=== PATIENT | male | born 1945 | race Caucasian/White ===

== ENCOUNTER → 2021-10-12 10:10 | Outpatient (CLI) | payer OTHER, MEDICAID, SELFPAY ==
--- NOTE | 2021-10-12 | DI.US.S_ITS ---
PROCEDURE: US FINE NEEDLE ASPIRATION INDICATIONS: Nontoxic single thyroid nodule TECHNIQUE: The indications, alternatives, benefits, risks, and complications of the procedure were explained to the patient. Written informed consent was obtained and placed in the chart. The area of interest was examined sonographically and a site was chosen for ultrasound guided percutaneous sampling. The skin was prepared and draped in the usual fashion, and anesthetized with 1% lidocaine infiltrated from the skin down to the lesion. Multiple passes were then performed, with contents emptied into an appropriate pathology specimen container. A bandage was applied to the area of access at completion of the study. COMPARISON: [facility], , US SOFT TISSUE HEAD OR NECK, 08/15/2021, 10:30. FINDINGS: Location(s) of lesion(s) sampled: Right inferior [place]: 25 gauge hypodermic needles. Number of passes: 7 Medications: 1% lidocaine for local anaesthesia. Complications: None. IMPRESSION: Successful ultrasound-guided right inferior thyroid fine needle aspiration, with cytology results pending. Dictated by: Davis Krueger M.D. on 10/12/2021 at 15:20 Approved by: Davis Krueger M.D. on 10/12/2021 at 15:22
--- NOTE | 2021-10-12 | PATH_ITS ---
Note [facility] Accession Number: [id number] TESTS RESULT FLAG UNITS REF RANGE LAB Clinician Provided Cytology Information No. of containers..04 Previously Prepared Cytology Slide 35 Unknown Storage/container code(s) Source: RIGHT THYROID NODULE DIAGNOSIS: RIGHT THYROID NODULE NEGATIVE FOR MALIGNANT CELLS. B[place]ES[place] CATEGORY II - BENIGN. SPECIMEN CONSISTS OF BENIGN FOLLICULAR CELLS, HEMOSIDERIN-LADEN MACROPHAGES, COLLOID, AND BLOOD. THIS PATTERN IS CONSISTENT WITH A COLLOID NODULE. Pathologist ICD10: 02 E04.1 Signed out by: 02 Rafy Dudley MD, PhD, Pathologist NPI- [id number] Performed by: Jhon Ward, [employer] ([facility]) Gross description: 01 30 CC, PINK, CLEAR /LCS 10/13/2021 0347 Local FLAG LEGEND: L-Low Normal,H-High Normal,LL-Alert Low,HH-Alert High <-Panic Low,>-Panic High,A-Abnormal,AA-Critical Abnormal Performed at: 01 =Z [facility] [address], [place] [address] Rafa Rhoades MD, 02 [facility] [address] [place] [id number] Silva Acosta MD, Performed at: 01 [facility] [address], [place], [place] [id number] MD Rafa Rhoades MD Phone: [phone]
== END ==
PROVIDERS: Family Provider Nurse Practitioner; PCP Internal Medicine; Referring Provider Otolaryngology; Visit Provider Otolaryngology
DX: E04.1 Nontoxic single thyroid nodule (principal)
CPT/HCPCS: 10005

== ENCOUNTER → 2023-01-11 12:53 | Outpatient (CLI) | payer OTHER, MEDICAID, SELFPAY ==
--- NOTE | 2023-01-11 | DI.US.S_ITS ---
PROCEDURE: US THYROID INDICATIONS: NONTOXIC SINGLE THYROID NODULE TECHNIQUE: Real-time scanning was performed of the thyroid gland, with image documentation. COMPARISON: [facility], US, US SOFT TISSUE HEAD OR NECK, 08/15/2021, 10:30. FINDINGS: Right: Thyroid lobe measures 4.7 x 1.9 x 1.4 cm, and is homogeneous in echotexture. Left: Thyroid lobe measures 3.5 x 1.6 x 1.2 cm, and is homogenous in echotexture. Isthmus: 2 mm thick. Nodule number: 1 Location: Right inferior thyroid Size: 1.2 x 1.1 x 0.8 cm. Composition: Solid Echogenicity: Hypoechoic Shape: wider than tall. Margins: Smooth Echogenic foci: None Total points: 4 ACR TI-RADS category: 4 Recommendations: Follow-up imaging at 1, 2, 3, and 5 years. IMPRESSION: Right thyroid nodule with follow-up recommended as above. Dictated by: Stepan Jacques M.D. on 01/11/2023 at 15:35 Transcribed by: CARRINGTON on 01/11/2023 at 15:37 Approved by: Stepan Jacques M.D. on 01/11/2023 at 16:45
== END ==
PROVIDERS: Family Provider Nurse Practitioner; PCP Internal Medicine; Referring Provider Internal Medicine; Visit Provider Internal Medicine
DX: E04.1 Nontoxic single thyroid nodule (principal)
CPT/HCPCS: 76536

== ENCOUNTER 2023-07-23 15:59 | Emergency (ER) | payer OTHER, MEDICAID, SELFPAY ==
--- NOTE | 2023-07-23 | DI.CT.S_ITS ---
PROCEDURE: CT ANGIO HEAD AND NECK INDICATIONS: dizziness TECHNIQUE: After the administration of intravenous contrast, 1 mm thick sections acquired from the aortic arch through the [place]. MIP reformats of the arterial vasculature were utilized. For radiation dose reduction, the following was used: automated exposure control, adjustment of mA and/or kV according to patient size. COMPARISON: [facility], MR, BRAIN (IAC) W&WO CONTRAST, 06/24/2015, 13:40. [facility], CT, CT HEAD/BRAIN WO CON, 07/23/2023, 16:35. FINDINGS: Cerebral CT Angiogram: Internal carotid arteries: Severe stenosis in the distal right cavernous ICA. Left distal ICA unremarkable. Anterior cerebral arteries: Unremarkable. No significant stenosis. No occlusion. No aneurysm. Middle cerebral arteries: Diminutive right MCA terminates in the distal M1 segment, consistent with prior infarct. Multiple branches noted in the anterior 3rd of the right MCA. Left MCA unremarkable Posterior cerebral arteries: Right [employer] is absent, occluded at its origin. Hypoplasia/aplasia of the left P1 PHOTO[employer]HY [employer]IN[employer] CURATOR noted. The P2 segment is supplied by a widely patent posterior communicating artery. Remainder of the distal vasculature unremarkable. Basilar artery: Diminutive but patent basilar artery terminates in the superior cerebellar arteries Vertebral arteries: Unremarkable as visualized. Dural venous sinuses: Unremarkable given phase of enhancement. Other: Encephalomalacia and gliosis noted in the posterior 2/3 of the right MCA and PH[employer]ATOR territory with associated volume loss. No intracranial hemorrhage Neck CT Angiogram: Internal carotid arteries: Unremarkable. No significant stenosis. No dissection or occlusion. Common carotid arteries: Unremarkable. No significant stenosis. No dissection or occlusion. External carotid arteries: Unremarkable. No occlusion. Vertebral arteries: Right vertebral artery dominance. 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 Aortic Arch and Mediastinum: Partially visualized aortic arch unremarkable without evidence of aneurysm. Origins of the great vessels unremarkable. IMPRESSION: 1. 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 Occluded right PHOTO[employer]HY [employer]IN[employer] CURATOR. 2. Old right MCA/PHOTOGRAPHY [employer]IN[employer] CURATOR infarcts. 3. Unremarkable CT angiogram of neck Approved by: Parish Rodriguez M.D. on 07/23/2023 at 16:30
[2023-07-23 16:09] VITALS: BP 144/74; PULSE 62; RESP 16; TEMP 36.3; O2SAT 100; BMI 27.1
--- NOTE | 2023-07-23 16:26 | DI.RAD.S_ITS ---
PROCEDURE: XR CHEST 1V INDICATIONS: Possible stroke TECHNIQUE: One view of the chest was acquired. COMPARISON: None. FINDINGS: Surgical changes and devices: None. Lungs and pleura: Lungs are clear. No pleural effusions or pneumothorax. Mediastinum: Mediastinal contours appear normal. Heart size is mildly prominent. Bones and chest wall: No suspicious bony lesions. Overlying soft tissues appear unremarkable. IMPRESSION: No acute pulmonary process. Dictated by: Shannan Philip M.D. on 07/23/2023 at 16:53 Approved by: Shannan Philip M.D. on 07/23/2023 at 16:53
--- NOTE | 2023-07-23 16:27 | DI.CT.S_ITS ---
PROCEDURE: CT HEAD/BRAIN WO CON INDICATIONS: dizziness TECHNIQUE: Noncontrast 4.5 mm thick angled axial sections acquired from the foramen magnum to the vertex, with coronal and sagittal reformats. For radiation dose reduction, the following was used: automated exposure control, adjustment of mA and/or kV according to patient size. COMPARISON: [facility], MR, BRAIN (IAC) W&WO CONTRAST, 06/24/2015, 13:40. CT, BRAIN W/O CONTRAST, 03/04/2015, 14:49. FINDINGS: Image quality: Excellent. CSF spaces: Basal cisterns are patent. No extra-axial fluid collections. The ventricles are symmetric in size and shape. Brain: No intracranial bleeds or masses. There is cerebral volume loss for age, with resultant ventricular and sulcal prominence. There are periventricular and deep white matter chronic small vessel ischemic changes. There is intracranial internal carotid artery atherosclerosis. Encephalomalacia within the right temporal parietal occipital lobe consistent with prior infarction. Old basal ganglia foci of lacunar ischemia. Skull and face: Calvarium and visualized facial bones appear intact, without suspicious lesions. Sinuses: Visualized sinuses and mastoids are clear. IMPRESSION: 1. No acute intracranial process. 2. Moderate atrophy and chronic microvascular ischemic changes. Dictated by: Shannan Philip M.D. on 07/23/2023 at 16:52 Approved by: Shannan Philip M.D. on 07/23/2023 at 16:52
[2023-07-23 16:37] LABS: INR 1.2 (0.9-1.3)
[2023-07-23 16:40] LABS: PTT Partial Thromboplastin Tim 33 SECONDS (26-36)
[2023-07-23 16:41] LABS: Alanine Aminotransferase 25 IU/L (<50); Albumin 4.2 g/dL (3.5-5.0); Albumin Globulin Ratio 1.6 (1.0-2.8); Alkaline Phosphatase 87 U/L (38-126); Aspartate Aminotransferase 23 IU/L (17-59); BUN Creatinine Ratio 17.8 (6-22); Bilirubin Total 1.7 mg/dL (0.2-1.3); Blood Urea Nitrogen 19 mg/dL (9-20); Carbon Dioxide 28 mmol/L (22-32); Chloride 107 mmol/L (98-107); Creatine Kinase 39 U/L (55-170); Estimated Glomerular Filt Rate > 60 mL/min (>60); Globulin 2.6 g/dL (1.7-4.1); Glucose 104 mg/dL (80-110); HEMOLYSIS < 15 (0-50); Magnesium 1.9 mg/dL (1.6-2.3); Potassium 4.4 mmol/L (3.4-5.1); Sodium 141 mmol/L (137-145); Total Protein 6.8 g/dL (6.3-8.2)
[2023-07-23 16:42] LABS: Add Manual Diff / Slide Review NO; Basophils Absolute Auto 100 /uL (0-100); Basophils Percent Auto 1.1 % (0-2); Eosinophils Absolute Auto 100 /uL (0-450); Eosinophils Percent Auto 1.2 % (2-4); Hematocrit 40.6 % (41-53); Hemoglobin 14.4 g/dL (13.5-17.5); Lymphocytes Absolute Auto 1500 /uL (1100-4500); Lymphocytes Percent Auto 21.7 % (25-40); Mean Corpuscular HGB Conc 35.5 % (30-36); Mean Corpuscular Hemoglobin 30.4 PG (26-34); Mean Corpuscular Volume 85.6 fL (80-100); Monocytes Absolute Auto 500 /uL (0-900); Monocytes Percent Auto 6.4 % (3-14); Neutrophils Absolute Auto 4900 /uL (1500-7000); Neutrophils Percent Auto 69.6 % (50-75); Platelet Count 191 X10^3/uL (150-400); Red Blood Cell Count 4.74 X10^6/uL (4.5-5.9); Red Cell Distribution Width 14.3 % (11.6-14.8); White Blood Cell Count 7.1 X10^3/uL (4.5-11.0)
[2023-07-23 16:52] LABS: Troponin I < 0.012 ng/mL (0.01-0.034)
[2023-07-23 18:05] VITALS: BP 136/68; PULSE 63; RESP 19; O2SAT 99
[2023-07-23 18:30] VITALS: PULSE 55; O2SAT 94
[2023-07-23 18:31] VITALS: BP 168/90; PULSE 61; O2SAT 95
--- NOTE | 2023-07-23 18:32 | ED_ITS ---
HPI - General Adult General Chief complaint: Dizziness Stated complaint: Light headed, dizzy. Stroke t-100 Time Seen by Provider: 07/23/23 17:49 Mode of arrival: Family Vehicle History of Present Illness HPI narrative: 77-year-old gentleman with a history of a large stroke in March of this year noted elevated blood pressure, dizziness and some lightheadedness around 230 this afternoon. He took some meclizine reports that is somewhat improved but comes in for additional evaluation. 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 After discharge he did go to stroke rehab and does have continued left-sided visual field deficits, paroxysmal atrial fibrillation, mild left- sided weakness worse when he is fatigued and occasional episodes of dizziness. He states that he had been doing well until he noted getting slightly clammy and feeling somewhat dizzy. He describes this as exactly like previous episodes. It was not associated with fever, cough, chills, orthopnea, dyspnea. He did not notice any change to his mild left-sided weakness and currently is completely asymptomatic. Related Data Allergies Allergy/AdvReac Type Severity Reaction Status Date / Time Penicillins Allergy Rash Verified 07/23/23 16:12 Review of Systems Constitutional Comments: Pertinent positive and negative findings as per HPI Patient History Social History Smoking Status: Never smoker Smoking Status: Never smoker Substance Use Type: does not use Exam Initial Vital Signs Initial Vital Signs: Vital Signs Temperature 97.3 F L 07/23/23 16:09 Pulse Rate 62 07/23/23 16:09 Respiratory Rate 16 07/23/23 16:09 Blood Pressure 144/74 H 07/23/23 16:09 Pulse Oximetry 100 07/23/23 16:09 Oxygen Delivery Method Room Air 07/23/23 16:09 General: Healthy appearing, in no acute distress. Able to give a complete and coherent history. Well-nourished well-developed HEENT: Moist mucous membranes, normal sclera with reactive pupils, left-sided peripheral visual field deficit Neck: No JVD, supple Respiratory: Lungs are clear to auscultation, no wheezing no rales no rhonchi. Full and symmetrical air movement Cardiac: Regular rate and rhythm no murmurs no bruits Abdomen: Soft, nontender, good bowel tones, no flank pain Skin: Warm and dry, no rashes Neurologic: Very minor weakness left upper and lower extremity that is still technically gets a 0 score on NIH scoring. Remainder of exam is benign Extremities: No trauma, well perfused Psych: Cooperative, appropriate insight and affect NIH Stroke Scale/Score (NIHSS) RESULT SUMMARY: 2 points NIH Stroke Scale INPUTS: 1A: Level of consciousness ?> 0 = Alert; keenly responsive 1B: Ask month and age ?> 0 = Both questions right 1C: 'Blink eyes' & 'squeeze hands' ?> 0 = Performs both tasks 2: Horizontal extraocular movements ?> 0 = Normal 3: Visual vance ?> 2 = Complete hemianopia 4: Facial palsy ?> 0 = Normal symmetry 5A: Left arm motor drift ?> 0 = No drift for 10 seconds 5B: Right arm motor drift ?> 0 = No drift for 10 seconds 6A: Left leg motor drift ?> 0 = No drift for 5 seconds 6B: Right leg motor drift ?> 0 = No drift for 5 seconds 7: Limb Ataxia ?> 0 = No ataxia 8: Sensation ?> 0 = Normal; no sensory loss 9: Language/aphasia ?> 0 = Normal; no aphasia 10: Dysarthria ?> 0 = Normal 11: Extinction/inattention ?> 0 = No abnormality Course Orders Ordered: ED Orders 07/23/23 16:25 Complete Blood Count AUTO DIFF Stat Comprehensive Metabolic Panel Stat Magnesium Stat PTT Partial Thromboplastin Cruz Stat Prothrombin Time INR Stat Troponin & CK Cardiac Panel Stat 07/23/23 16:26 XR chest 1V Stat EKG-12 Lead Stat 07/23/23 16:27 CT head/brain wo con Stat Ondansetron HCl (Ondansetron 4 Mg/2 Ml Inj) 4 mg IV NOW PRN PRN Reason: Nausea And Vomiting Ondansetron HCl (Ondansetron 4 Mg Odt) 4 mg SL NOW PRN PRN Reason: Nausea And Vomiting Vital Signs Vital signs: Vital Signs - 8 hr 07/23/23 16:09 07/23/23 18:05 Temperature 97.3 F L Pulse Rate 62 63 Respiratory Rate 16 19 Blood Pressure 144/74 H 136/68 Pulse Oximetry 100 99 Oxygen Delivery Method Room Air Room Air Medical Decision Making Lab Data 07/23/23 16:25 11/13/23 16:25 Labs: Lab Results 07/23/23 Range/Units 16:25 WBC 7.1 (4.5-11.0) X10^3/uL RBC 4.74 (4.5-5.9) X10^6/uL Hgb 14.4 (13.5-17.5) g/dL Hct 40.6 L (41-53) % MCV 85.6 (80-100) fL MCH 30.4 (26-34) PG MCHC 35.5 (30-36) % RDW 14.3 (11.6-14.8) % Plt Count 191 (150-400) X10^3/uL Neut % (Auto) 69.6 (50-75) % Lymph % (Auto) 21.7 L (25-40) % [place] % (Auto) 6.4 (3-14) % Eos % (Auto) 1.2 L (2-4) % Baso % (Auto) 1.1 (0-2) % Neut # (Auto) 4900 (9492-8519) /uL Lymph # (Auto) 1500 (4862-9345) /uL [place] # (Auto) 500 (0-900) /uL Eos # (Auto) 100 (0-450) /uL Baso # (Auto) 100 (0-100) /uL PT 14.0 H (10.1-12.7) SECONDS INR 1.2 (0.9-1.3) APTT 33 (26-36) SECONDS Sodium 141 (137-145) mmol/L Potassium 4.4 (3.4-5.1) mmol/L Chloride 107 (98-107) mmol/L Carbon Dioxide 28 (22-32) mmol/L BUN 19 (9-20) mg/dL Creatinine 1.07 (0.66-1.25) mg/dL Estimated GFR > 60 (>60) mL/min BUN/Creatinine Ratio 17.8 (6-22) Glucose 104 (80-110) mg/dL Calcium 10.0 (8.4-10.2) mg/dL Magnesium 1.9 (1.6-2.3) mg/dL Total Bilirubin 1.7 H (0.2-1.3) mg/dL AST 23 (17-59) IU/L ALT 25 (<50) IU/L Alkaline Phosphatase 87 (38-126) U/L Total Creatine Kinase 39 L (55-170) U/L Troponin I < 0.012 (0.01-0.034) ng/mL Total Protein 6.8 (6.3-8.2) g/dL Albumin 4.2 (3.5-5.0) g/dL Globulin 2.6 (1.7-4.1) g/dL Albumin/Globulin Ratio 1.6 (1.0-2.8) MDM Narrative Medical decision making narrative: CC: Dizziness Complicating co-morbidities: Data collected from: patient, significant other Social determinants of health that may influence the patients condition: Medical records reviewed: [facility] reviewed. Summarized in HPI. Cardiology notes from June 25 reviewed with recommendations to follow up with a Holter monitor to further evaluate his burden of atrial fibrillation. Differential considered: New stroke, hypoglycemia, hypotension, cardiac arrhythmia, chronic effect from prior stroke Exam documented above, pertinent findings include: Patient is quite pleasant. On detailed neurologic testing he does have left-sided peripheral field deficits and very mild left-sided upper and lower extremity weakness. His stroke rehab has progressed n nicely Lab Test results independently reviewed as above. Pertinent findings: CBC is unremarkable INR is 1.2 Chemistries show normal renal function, minimally elevated but it bilirubin at 1.7 (a chronic finding for him) no other significant abnormalities Independently reviewed EKG EKG today shows him to be in a sinus rhythm with PACs. Rate is at 63. No acute ischemic changes. Imaging studies independently reviewed: Head CT shows no acute intracranial processes with moderate atrophy and chronic microvascular ischemic changes Head and neck CTA multiple sequelae noted with large stroke in March are still appreciated including old right MCA and ENVELOPE ADDRESSER infarcts with a diminutive right am 1 MCA and absent distal branches in the posterior 2/3 territory. There is an occluded right ENVELOPE ADDRESSER. There are no new findings noted Chest x-ray is unremarkable. Discussion: 77-year-old gentleman with complex cardiovascular disease large stroke post TNK and thrombectomy with multiple vessel abnormalities still present. He is recently out of stroke rehab and still has some very mild left- sided weakness that is worse when he gets tired. He notes occasional dizziness but does not note any visual field changes despite the left-sided hemianopsia noted on exam. At this time his dizziness is completely resolved. He says that these episodes will happen intermittently and do not seem to be related to time of day, position or activity. The last from minutes to hours. If they last longer than minutes and he does take meclizine he finds that it is quite helpful. There is no indication of new stroke, new cardiac event, congestive heart failure, infection or alternate explanation that would require hospitalization, additional imaging or further workup. 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 Discharge Plan Departure Patient Disposition: Home Clinical Impression: Vertigo, Paroxysmal A-fib, H/O: stroke with residual effects Hypertension Qualifiers: Hypertension type: primary hypertension Qualified Code(s): I10 - Essential (primary) hypertension Instructions: DI for Vertigo Activity Restrictions/Additional Instructions: Thank you for coming in today You had a CT scan of your brain as well as all of the blood vessels going into and out of your brain. There were some findings related to the stroke that you had in March, however, there are no new findings. With a stroke that you had in March it makes sense that you actually do have a bit of vision that is missing and that you do have occasional episodes of vertigo. You did the exactly right thing by taking the meclizine with your episode of vertigo today. With your last visit with Dr. Carvajal, he would mentioned scheduled only for a Holter monitor to see how frequently your heart is in atrial fibrillation and how frequently it is in a regular rhythm. Following up with this test might be helpful in further evaluating your dizziness. At this time, there is no concern for new findings or reasons for hospitalization. I wish you well Referrals: Otoniel Ahn MD [Primary Care Provider] - Stand Alone Forms: Patient Portal/API
[2023-07-23 19:00] VITALS: PULSE 67; O2SAT 98
[2023-07-23 19:01] VITALS: BP 175/79; PULSE 69; O2SAT 98
== END 2023-07-23 19:18 | disposition home or self-care (01) ==
PROVIDERS: Emergency Medicine; Emergency Provider Emergency Medicine; Family Provider Nurse Practitioner; PCP Internal Medicine
DX: R42 Dizziness and giddiness (principal); I48.0 Paroxysmal atrial fibrillation; I10 Essential (primary) hypertension; Z79.01 Long term (current) use of anticoagulants; Z86.73 Personal history of transient ischemic attack (TIA), and cerebral infarction without residual deficits
CPT/HCPCS: 36415; 70450; 70496; 70498; 71045; 80053; 82550; 83735; 84484; 85025; 85610; 85730; 93005; 93010; 99284; Q9967

== ENCOUNTER 2024-12-09 14:05 | Observation (INO) | payer MEDICARE, MEDICAID, SELFPAY ==
[2024-12-09] VITALS (8 sets, daily range): BP systolic 119–149; BP diastolic 56–86; PULSE 41–51; RESP 12–18; TEMP 36.6–36.9; O2SAT 93–99; BMI 25.0
--- NOTE | 2024-12-09 14:28 | EKG_ITS ---
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
--- NOTE | 2024-12-09 14:28 | DI.RAD.S_ITS ---
PROCEDURE: XR CHEST 1V INDICATIONS: chest pain TECHNIQUE: One view of the chest was acquired. COMPARISON: [facility], CR, XR CHEST 1V, 07/23/2023, 16:31. FINDINGS: Surgical changes and devices: None. Lungs and pleura: There is mild pulmonary vascular congestion. No definite focal infiltrate. No pleural effusions or pneumothorax. Mediastinum: Mediastinal contours appear normal. Heart size is enlarged. Bones and chest wall: No suspicious bony lesions. Overlying soft tissues appear unremarkable. IMPRESSION: Cardiomegaly and mild congestion. No definite focal infiltrate. No significant pleural effusion or pneumothorax. Dictated by: Darrius Matias M.D. on 12/09/2024 at 14:50 Approved by: Darrius Matias M.D. on 12/09/2024 at 14:50
[2024-12-09 14:57] LABS: Add Manual Diff / Slide Review NO; Basophils Absolute Auto 100 /uL (0-100); Eosinophils Absolute Auto 100 /uL (0-450); Hematocrit 41.8 % (41-53); Hemoglobin 14.6 g/dL (13.5-17.5); Lymphocytes Absolute Auto 800 /uL (1100-4500); Lymphocytes Percent Auto 12.2 % (25-40); Mean Corpuscular HGB Conc 34.9 % (30-36); Mean Corpuscular Hemoglobin 30.8 PG (26-34); Mean Corpuscular Volume 88.4 fL (80-100); Monocytes Absolute Auto 300 /uL (0-900); Monocytes Percent Auto 3.8 % (3-14); Neutrophils Absolute Auto 5600 /uL (1500-7000); Platelet Count 158 X10^3/uL (150-400); Red Blood Cell Count 4.73 X10^6/uL (4.5-5.9); Red Cell Distribution Width 14.6 % (11.6-14.8); White Blood Cell Count 6.9 X10^3/uL (4.5-11.0)
[2024-12-09 15:04] LABS: INR 1.5 (0.9-1.3); Prothrombin Time 16.9 SECONDS (9.4-12.5)
[2024-12-09 15:07] LABS: PTT Partial Thromboplastin Tim 36 SECONDS (25.1-36.5)
[2024-12-09 15:09] LABS: Alanine Aminotransferase 21 IU/L (<50); Albumin 4.3 g/dL (3.5-5.0); Albumin Globulin Ratio 1.8 (1.0-2.8); Alkaline Phosphatase 109 U/L (38-126); Aspartate Aminotransferase 23 IU/L (17-59); BUN Creatinine Ratio 13.9 (6-22); Bilirubin Total 2.4 mg/dL (0.2-1.3); Blood Urea Nitrogen 15 mg/dL (9-20); Calcium 9.9 mg/dL (8.4-10.2); Carbon Dioxide 25 mmol/L (22-32); Chloride 107 mmol/L (98-107); Creatine Kinase 30 U/L (55-170); Estimated Glomerular Filt Rate > 60 mL/min (>60); Globulin 2.4 g/dL (1.7-4.1); Glucose 126 mg/dL (80-110); HEMOLYSIS < 15 (0-50); Lipase 29 U/L (23-300); Magnesium 1.8 mg/dL (1.6-2.3); Potassium 3.6 mmol/L (3.4-5.1); Sodium 142 mmol/L (137-145); Total Protein 6.7 g/dL (6.3-8.2)
--- NOTE | 2024-12-09 15:13 | ED_ITS ---
HPI - Syncope General Chief Complaint: Dizziness Stated Complaint: fatigue/dizzy Time Seen by Provider: 12/09/24 14:58 Source: patient, family and EMS Mode of arrival: EMS History of Present Illness HPI narrative: 79-year-old gentleman history of CVA atrial fibrillation, hld, vertigo was coming back from the foot doctor's office to the bus stop when he got dizzy and lightheaded and almost fell to the ground. He denies any trauma to the head or any loss of consciousness, chest pain, shortness of breath, leg pain or swelling. other than what is stated 14 point review of system is negative Related Data Allergies Allergy/AdvReac Type Severity Reaction Status Date / Time Penicillins Allergy Rash Verified 07/23/23 16:12 Review of Systems Review of Systems ROS Unobtainable: All systems reviewed & are unremarkable except as noted in HPI and below Patient History Social History Smoking Status: Former smoker Smoking Status: Former smoker Exam Narrative Exam Narrative: GENERAL: [79] year old patient appears stated age. Well-developed patient, in mild distress. HEAD: Atraumatic. Normocephalic. EYES: Pupils equal round and reactive. Extraocular motions intact. No scleral icterus. No injection or drainage. ENT: Nose without bleeding, purulent drainage. Throat without erythema, tonsillar hypertrophy or exudate. Airway patent. NECK: Trachea midline. Non tender CARDIOVASCULAR: Bradycardic, regular rate and rhythm without murmurs, gallops, or rubs. RESPIRATORY: Clear to auscultation. Breath sounds equal bilaterally. No wheezes, rales, or rhonchi. GASTROINTESTINAL: Abdomen soft, non-tender, nondistended. EXTREMITIES: No edema or joint tenderness. BACK: Nontender without deformity or crepitance. No flank tenderness. NEURO: AOx3. SKIN: No rash or erythema of visible areas Initial Vital Signs Initial Vital Signs: Vital Signs Temperature 98.4 F 12/09/24 14:10 Pulse Rate 48 L 12/09/24 14:10 Respiratory Rate 18 12/09/24 14:10 Blood Pressure 125/59 L 12/09/24 14:10 Pulse Oximetry 98 12/09/24 14:10 Oxygen Delivery Method Room Air 12/09/24 14:10 Course Orders Ordered: ED Orders 12/09/24 14:28 XR chest 1V Stat EKG-12 Lead Stat 12/09/24 14:45 Complete Blood Count AUTO DIFF Stat Comprehensive Metabolic Panel Stat Lipase Stat Magnesium Stat NT-proBNP (BNP-Adult 18+) Stat PTT Partial Thromboplastin [place] Stat Prothrombin Time INR Stat Troponin & CK Cardiac Panel Stat 12/09/24 15:13 CT head/brain wo con Stat Discontinued Medications Aspirin (Aspirin 81 Mg Chew Tab) 324 mg PO NOW ONE Stop: 12/09/24 14:29 Vital Signs Vital signs: Vital Signs - 8 hr 12/09/24 14:10 12/09/24 14:10 12/09/24 14:13 Temperature 98.4 F Pulse Rate 48 L 41 L Respiratory Rate 18 Blood Pressure 125/59 L 125/59 L Pulse Oximetry 98 96 Oxygen Delivery Method Room Air 12/09/24 14:13 12/09/24 14:30 12/09/24 14:30 Temperature Pulse Rate 44 L 41 L Respiratory Rate 14 Blood Pressure 128/63 Pulse Oximetry 95 97 Oxygen Delivery Method 12/09/24 15:00 12/09/24 15:01 12/09/24 15:01 Temperature Pulse Rate 42 L 42 L Respiratory Rate 14 15 Blood Pressure 119/56 L Pulse Oximetry 99 99 Oxygen Delivery Method All lab work EKG chest x-ray all reviewed. Patient remains heart rate of 46 here in the ER on the rehabilitation services counselor he is on metoprolol half a tablet of the metoprolol dose. Differential diagnosis includes symptomatic bradycardia, 1st vs 2nd vs 3rd degree av block, thyroid disease, electrolyte derangement. Case discussed with Dr. Harris who has graciously admitted the patient for observation. MDM - Syncope Lab Data 12/09/24 14:45 12/09/24 14:45 Labs: Lab Results 12/09/24 Range/Units 14:45 WBC 6.9 (4.5-11.0) X10^3/uL RBC 4.73 (4.5-5.9) X10^6/uL Hgb 14.6 (13.5-17.5) g/dL Hct 41.8 (41-53) % MCV 88.4 (80-100) fL MCH 30.8 (26-34) PG MCHC 34.9 (30-36) % RDW 14.6 (11.6-14.8) % Plt Count 158 (150-400) X10^3/uL Neut % (Auto) 82.0 H (50-75) % Lymph % (Auto) 12.2 L (25-40) % [place] % (Auto) 3.8 (3-14) % Eos % (Auto) 1.0 L (2-4) % Baso % (Auto) 1.0 (0-2) % Neut # (Auto) 5600 (2665-0828) /uL Lymph # (Auto) 800 L (0120-8001) /uL [place] # (Auto) 300 (0-900) /uL Eos # (Auto) 100 (0-450) /uL Baso # (Auto) 100 (0-100) /uL PT 16.9 H (9.4-12.5) SECONDS INR 1.5 H (0.9-1.3) APTT 36 (25.1-36.5) SECONDS Sodium 142 (137-145) mmol/L Potassium 3.6 (3.4-5.1) mmol/L Chloride 107 (98-107) mmol/L Carbon Dioxide 25 (22-32) mmol/L BUN 15 (9-20) mg/dL Creatinine 1.08 (0.66-1.25) mg/dL Estimated GFR > 60 (>60) mL/min BUN/Creatinine Ratio 13.9 (6-22) Glucose 126 H (80-110) mg/dL Calcium 9.9 (8.4-10.2) mg/dL Magnesium 1.8 (1.6-2.3) mg/dL Total Bilirubin 2.4 H (0.2-1.3) mg/dL AST 23 (17-59) IU/L ALT 21 (<50) IU/L Alkaline Phosphatase 109 (38-126) U/L Total Creatine Kinase 30 L (55-170) U/L Troponin I < 0.012 (0.01-0.034) ng/mL NT-Pro-B Natriuret Pep 390 (<450) pg/mL Total Protein 6.7 (6.3-8.2) g/dL Albumin 4.3 (3.5-5.0) g/dL Globulin 2.4 (1.7-4.1) g/dL Albumin/Globulin Ratio 1.8 (1.0-2.8) Lipase 29 (23-300) U/L ECG Data Attestation: I personally reviewed and interpreted this ECG as follows: Interpretation: SB HR [address]-t wave change OH 222 QRS 96 QT 520 Change from 07/23/23 Discharge Plan Departure Patient Disposition: Admitted as Observation Clinical Impression: Bradycardia Referrals: Otoniel Ahn MD [Primary Care Provider] - Admit Date/Time: 12/09/24 17:33 Admit Provider: Yared Harris
--- NOTE | 2024-12-09 15:13 | DI.CT.S_ITS ---
PROCEDURE: CT HEAD/BRAIN WO CON INDICATIONS: near syncope TECHNIQUE: Noncontrast 4.5 mm thick angled axial sections acquired from the foramen magnum to the vertex, with coronal and sagittal reformats. For radiation dose reduction, the following was used: automated exposure control, adjustment of mA and/or kV according to patient size. COMPARISON: [facility], CT, CT HEAD/BRAIN WO CON, 07/23/2023, 16:35. FINDINGS: Image quality: Diagnostic. CSF spaces: Basal cisterns are patent. No extra-axial fluid collections. The ventricles are symmetric in size and shape. Brain: No intracranial bleeds or masses. Moderate size old infarction in right MCA territory with significant encephalomalacia. This is unchanged from prior study. There is cerebral volume loss for age, with resultant ventricular and sulcal prominence. There are periventricular and deep white matter chronic small vessel ischemic changes. There is intracranial internal carotid artery atherosclerosis. Skull and face: Calvarium and visualized facial bones appear intact, without suspicious lesions. Sinuses: Visualized sinuses and mastoids are clear. IMPRESSION: No acute intracranial pathology. No significant changes from previous study. Dictated by: Darrius Matias M.D. on 12/09/2024 at 15:29 Approved by: Darrius Matias M.D. on 12/09/2024 at 15:30
[2024-12-09 15:21] LABS: NT-proBNP (BNP-Adult 18+) 390 pg/mL (<450); Troponin I < 0.012 ng/mL (0.01-0.034)
[2024-12-09 17:43] LABS: Thyroid Stimulating Hormone 3.03 uIU/mL (0.47-4.68)
--- NOTE | 2024-12-09 17:48 | PM.HP.1 ---
History of Present Illness History of Present Illness Date Patient Seen: 12/09/24 Chief complaint: fatigue/dizzy Narrative: The patient was a 79-year-old male with a history of CVA, atrial fibrillation, hyperlipidemia, and vertigo. He apparently went to a doctor's office appointment today and then radius was returning home when he became dizzy and lightheaded. The patient presented to the ED where there was a concern for bradycardia. He had a sinus rhythm with a rate of 42 and a first-degree AV block. The patient denies chest pain, or complete syncope. He was no history of syncopal episodes. He was a long history of vertigo but feels that this was different. He does note that he does get woozy from time to time. He was seen by Cardiology at [facility], Dr. Carvajal. He believes that his only heart problem is atrial fibrillation. This appears to be PAF. Presumably, he takes metoprolol for rate control. He was hard of hearing in his hearing aids. His girlfriend is leaving these with him at the hospital. [facility] Social History Smoking Status: Former smoker Meds Home Medications and Allergies Allergies Allergy/AdvReac Type Severity Reaction Status Date / Time Penicillins Allergy Rash Verified 07/23/23 16:12 Review of Systems Review of Systems Narrative: All else reviewed and otherwise unremarkable except as noted in the history and physical. Exam Vital Signs (past 8 hours): - 12/09/24 14:10 12/09/24 14:10 12/09/24 14:13 Temperature 98.4 F Pulse Rate 48 L 41 L Respiratory Rate 18 Blood Pressure 125/59 L 125/59 L Pulse Oximetry 98 96 Oxygen Delivery Method Room Air 12/09/24 14:13 12/09/24 14:30 12/09/24 14:30 Temperature Pulse Rate 44 L 41 L Respiratory Rate 14 Blood Pressure 128/63 Pulse Oximetry 95 97 Oxygen Delivery Method 12/09/24 15:00 12/09/24 15:01 12/09/24 15:01 Temperature Pulse Rate 42 L 42 L Respiratory Rate 14 15 Blood Pressure 119/56 L Pulse Oximetry 99 99 Oxygen Delivery Method Oxygen Delivery Method Room Air Narrative Exam Narrative: NAD, alert and oriented, fluent speech, calm. Normocephalic skull, EOMI, anicteric sclera, symmetric pupils. Oropharynx unremarkable, no droop. Neck supple, midline trachea, no adenopathy. Lungs clear, normal rate and effort. Heart regular, no murmur gallop or rub. Abdomen is soft, non distended and non tender. Extremities are free of edema. Skin is free of rash or lesions. Joints are not swollen or deformed. Judgment appears to be normal. Objective ECG Impression: Marked sinus bradycardia with 1st degree AV block Imaging Multiple studies:: Radiologist's impression: Head CT: No acute intracranial pathology. No significant changes from previous study. Chest x-ray: Cardiomegaly and mild congestion. No definite focal infiltrate. No significant pleural effusion or pneumothorax. Labs 12/09/24 14:45 12/09/24 14:45 Labs: Laboratory Results - last 24 hr 12/09/24 14:45 WBC 6.9 RBC 4.73 Hgb 14.6 Hct 41.8 MCV 88.4 MCH 30.8 MCHC 34.9 RDW 14.6 Plt Count 158 Neut % (Auto) 82.0 H Lymph % (Auto) 12.2 L [place] % (Auto) 3.8 Eos % (Auto) 1.0 L Baso % (Auto) 1.0 Neut # (Auto) 5600 Lymph # (Auto) 800 L [place] # (Auto) 300 Eos # (Auto) 100 Baso # (Auto) 100 PT 16.9 H INR 1.5 H APTT 36 Sodium 142 Potassium 3.6 Chloride 107 Carbon Dioxide 25 BUN 15 Creatinine 1.08 Estimated GFR > 60 BUN/Creatinine Ratio 13.9 Glucose 126 H Calcium 9.9 Magnesium 1.8 Total Bilirubin 2.4 H AST 23 ALT 21 Alkaline Phosphatase 109 Total Creatine Kinase 30 L Troponin I < 0.012 NT-Pro-B Natriuret Pep 390 Total Protein 6.7 Albumin 4.3 Globulin 2.4 Albumin/Globulin Ratio 1.8 Lipase 29 TSH 3.03 Assessment & Plan Assessment & Plan narrative: 1. Marked sinus bradycardia with first-degree heart block, present on admission and active. 2. Transient dizziness with possible presyncope, present on admission and active. 3. Remote CVA, present on admission stable. 4. Atrial fibrillation, not present on admission are active. 5. Hyperlipidemia, present on admission and stable. 6. History of vertigo, present on admission and not clearly active. Plan: Observational admit anticipate 1 midnight of care. Hold metoprolol and monitor heart rate. Telemetry. Continue other medications without change. Physical therapy assessment in the morning. IV fluids with saline 100 overnight in case he was volume depleted. The patient is full resuscitation, this is confirmed with him today. He lives in [place], it was accompanied by his girlfriend. Time-Based Coding :: 35 min spent with patient and on the chart (including review of chart, obtaining history, exam, reviewing outside data, placing orders, documenting exam and treatment plan, and counseling patient) on 12/09. Quality MIPS - Admit I confirm the patient?s Advance Care Plan is present, Code status is documented, Surrogate decision maker is in patient?s record [If Yes, STOP here]: Yes MIPS - Meds 'Current medications' to include all prescriptions, [id number] products, herbals, cannabis/cannabidiol products, and vitamin/mineral/dietary (nutritional) supplements. I have utilized all available resources to obtain, update, or review the patient?s current medications. [If Yes, STOP here]: Yes
--- NOTE | 2024-12-09 18:54 | CM.MNRNOTE ---
Patient arrived from ED at 1800 this evening. He is able to stand from gurney and take a couple of steps to lie down in bed. He denies dizziness but gait is slightly week. He is able to complete admission assessment with assistance from girlfriend at bedside. He denies pain, and is able to tolerate 100% of dinner meal. Placed on telemetry and reading is bradycardia with 1st degree AVB, and prolonged QT. HR in ED 40's-50's. Admission assessment completed with marcos MALDONADO MD at bedside evaluating patient. He is changed into hospital gown, skin assessment completed and oriented to room.
[2024-12-09] MEDS: SODIUM CHLORIDE 0.9% 1,000 ML 100 ML IV (21:58)
[2024-12-10] VITALS: BP 161/86; PULSE 45; RESP 16; TEMP 36.8; O2SAT 96
[2024-12-10 04:00] VITALS: BP 106/55; PULSE 88; RESP 20; TEMP 36.3; O2SAT 97
[2024-12-10] MEDS: SODIUM CHLORIDE 0.9% 1,000 ML 100 ML IV (06:36)
[2024-12-10 08:00] VITALS: BP 152/73; PULSE 52; RESP 16; TEMP 36.9; O2SAT 98
--- NOTE | 2024-12-10 10:11 | PM.DS.1 ---
History of Present Illness History of Present Illness Date Patient Seen: 12/10/24 Time Patient Seen: 10:12 Chief complaint: fatigue/dizzy Discharge Providers Provider Date of admission: 12/09/24 17:33 Discharge Date: 12/10/24 Primary care physician: Otoniel Ahn MD Consults: 12/10/24 10:08 Consult to Physical Therapy Evaluate & Treat Comment: Physician Instructions: Evaluate and Treat Discharge provider: Franko Muller DO Exam Vital Signs (past 8 hours): - 12/10/24 04:00 12/10/24 08:00 Temperature 97.4 F L 98.5 F Pulse Rate 88 52 L Respiratory Rate 20 16 Blood Pressure 106/55 L 152/73 H Pulse Oximetry 97 98 Oxygen Flow Rate 0 0 Oxygen Delivery Method Room Air Oxygen Flow Rate 0 Objective Labs 12/09/24 14:45 12/09/24 14:45 Labs: Laboratory Results - last 24 hr 12/09/24 14:45 WBC 6.9 RBC 4.73 Hgb 14.6 Hct 41.8 MCV 88.4 MCH 30.8 MCHC 34.9 RDW 14.6 Plt Count 158 Neut % (Auto) 82.0 H Lymph % (Auto) 12.2 L [place] % (Auto) 3.8 Eos % (Auto) 1.0 L Baso % (Auto) 1.0 Neut # (Auto) 5600 Lymph # (Auto) 800 L [place] # (Auto) 300 Eos # (Auto) 100 Baso # (Auto) 100 PT 16.9 H INR 1.5 H APTT 36 Sodium 142 Potassium 3.6 Chloride 107 Carbon Dioxide 25 BUN 15 Creatinine 1.08 Estimated GFR > 60 BUN/Creatinine Ratio 13.9 Glucose 126 H Calcium 9.9 Magnesium 1.8 Total Bilirubin 2.4 H AST 23 ALT 21 Alkaline Phosphatase 109 Total Creatine Kinase 30 L Troponin I < 0.012 NT-Pro-B Natriuret Pep 390 Total Protein 6.7 Albumin 4.3 Globulin 2.4 Albumin/Globulin Ratio 1.8 Lipase 29 TSH 3.03 PFSH Social History household members: significant other Smoking Status: Former smoker alcohol intake: current Discharge Plan Discharge Plan Patient Disposition: Home Discharge orders & Medications Prescriptions: No Action atorvastatin 80 mg tablet 80 mg PO DAILY hydralazine 25 mg tablet 25 mg PO 3XD amlodipine 2.5 mg tablet 2.5 mg PO DAILY potassium chloride 10 mEq tablet extended release 10 meq PO DAILY terbinafine HCl 250 mg tablet 250 mg PO DAILY tamsulosin 0.4 mg capsule 0.4 mg PO DAILY levetiracetam 250 mg tablet 500 mg PO BID meclizine 25 mg tablet 25 mg PO Q6H PRN (Reason: dizziness) sertraline 25 mg tablet 25 mg PO DAILY montelukast 10 mg tablet 10 mg PO DAILY metoprolol succinate 25 mg tablet extended release 24 hr 12.5 mg PO DAILY lisinopril 40 mg tablet 40 mg PO DAILY Eliquis 5 mg tablet 5 mg PO BID Follow up/Referrals: Otoniel Ahn MD [Primary Care Provider] - Visit Report/Discharge Packet Stand Alone Forms: Patient Portal/API, Stroke Signs & Symptoms Discharge Data Primary Care Provider: Otoniel Ahn Attending Provider: Yared Harris Admit Date/Time: 12/09/24 17:33
[2024-12-10] MEDS: levETIRAcetam 250 MG TABLET 500 MG PO ×2 (11:26→21:12)
[2024-12-10] MEDS: APIXABAN 5 MG TABLET PO ×2 (11:29→21:12)
--- NOTE | 2024-12-10 12:28 | CM.DANOTE ---
DCP Assessment Note: Pt is a 79yo male, resident of [place], is admitted for bradycardia. Pt's Primary Care Provider is Dr. Otoniel Ahn and insurance is [facility] Medicare and Medicaid [facility]. Reviewed chart and discussed with multidisciplinary team pt's medical status and initial discharge needs. Pt has discharge orders. DCP attempted to meet w/patient at bedside; introduced self and role. Pt kept eyes closed, seemed to be awake prior to entering but did not want to converse with this CORRECTION[employer] FACILITY NURSE. DCP left contact information on white board if any social needs arise, no dc needs identified. Plan: Anticipating dc home with caregiver/friend when medically cleared. CM team will follow closely for coordination of discharge plans. Alyssa Donnelly [facility] Discharge Planning/Care Management CM Discharge Assessment Start: 12/10/24 12:27 Freq: Status: Active Protocol: Document 12/10/24 12:27 MW (Rec: 12/10/24 12:28 MW [id number]) Discharge Planning Assessment Assigned Handicrafts Teacher ASTON Shah DPOA/Assigned Designee Name Elsy Hernandez, Friend Contact Information [phone] Advance Directives? No History Provided By Medical Record Has Patient been admitted in last 30 No days? Prior Living Arrangements RV Comment [place] Household Members significant other Barriers to Discharge No Discharge Plan Home Whiteboard Updated in Patient Room with Yes name and ext. # of Handicrafts Teacher Comment [phone] Review Status In Process Please Provide Date Initial DC 12/10/24 Assessment Was Performed Next Review Type Continued Stay Review
--- NOTE | 2024-12-10 13:50 | PT.IIE ---
Physical Therapy Inpatient Evaluation/Re-Eval M1 PT/OT-IP Prior Functional Status Start: 12/10/24 15:15 Freq: NEEDED Status: Active Protocol: Document 12/10/24 13:50 AB (Rec: 12/10/24 15:36 AB [id number]) Medical Review Prior Functional Status Medical History Reviewed Yes Communication very KNIK; able to respond to questions but needs repetitions Mobility and Gait pt stated that he was modified independent with all mobilities and ambulation using a quad cane indoors and a FWW for outdoor mobility Social History Household Members friend(s) Living Arrangements RV Number of Floors (Floors) One Floor Number of Stairs To Enter/Railing? 3 steps B rails to enter Home Environment Standard Height Toilet,Tub/ Shower,Built-In Shower Seat Home Equipment Front Wheel Walker,Quad Cane, Hand Held Shower,Grab Bars Near Toilet,Grab Bars In Shower Additional Social History Comment pt stated that he has his friends Kim and Shayna at home to assist him; mainly, Kim assist him per pt M2 PT-IP Current Condition Start: 12/10/24 15:15 Freq: NEEDED Status: Active Protocol: Document 12/10/24 13:50 AB (Rec: 12/10/24 15:36 AB [id number]) Physical Therapy Current Condition Current Condition Evaluation Date 12/10/24 Treatment Diagnosis bradycardia; difficulty in walking Onset Date 12/09/24 M3 PT-IP Subjective Start: 12/10/24 15:15 Freq: NEEDED Status: Active Protocol: Document 12/10/24 13:50 AB (Rec: 12/10/24 15:36 [id number]) Subjective Physical Therapy Visit Type Type Initial Evaluation Visit Start Time 13:50 Visit Stop Time 14:30 Number of [employer] L[employer] CORE FEEDER Visits 0 Physical Therapy Visit Comments Patient Comments agreeable to do PT M4 PT-IP Mobility and Gait Start: 12/10/24 15:15 Freq: NEEDED Status: Active Protocol: Document 12/10/24 13:50 AB (Rec: 12/10/24 15:36 [id number]) PT-Bed Mobility Assessment Supine to Sit Supine to Sit Standby Assistance,Head of Bed Elevated PT-Transfer Assessment Sit to and From Stand Sit to and from Stand Moderate Assistance,1 Person Assistance,Use of Upper Extremities Equipment Transfer Assistive Device Gait Belt,Front Wheeled Walker Orthotic/Prosthetic Devices or Brace: No Transfers Transfer Destination Chair Transfer Technique ambulated Transfer Ability Level of Assist Minimal Assistance,Moderate Assistance,1 Person Assistance ,Use of Upper Extremities Comments Mobility Comments pt in bed and agreed to do PT. obtained PLOF and home set up . pt is very KNIK and needing increase time to respond to questions and instructions. pt completed supine to sit SBA . able to sit on EOB SBA. BP : 144/74. IA: 47 O2 sat: 96% completed sit to stand mod A with lateral LOB to the L requiring mod A for safety. pt ambulated to the chair using fWW min to mod A and max cues ~ 15 ft. BP: 143/72. pt with unsteady antalgic gait with LLE tends to cross over midline. (+) LOB x 2 requiring mod A for recovery. pt with decrease safety awareness and unable to correct or rebalance without assitance. pt requested to use the toilet. sit to stand CGA and ambulated to the toilet using FWW min to mod A and max cues. pt has decrease safety awareness and needed one step instructions with all tasks. pt ambulated to the sink using FWW min to mod A and cues and was able to maintain standing min A while completing handwashing. pt ambulated back to chair using fWW min to mod A and max cues. pt with L sided inattention needing cues and assistance with L hand placement on FWW. Assessed ambulation using quad cane. sit to stand from chair CGA and ambulated using quad cane ~ 20 ft mod A and max cues with (+) LOB x 2. pt sat back on chair. sit to stand from chair CGA and pt completed stepping up/ down step stool using FWW min A and cues. assisted pt back on chair. positioned pt on chair. call light and table placed within reach. informed nurse and special education case manager regarding pt's mobility and assistance needed . requested OT eval orders. Gait Assessment Gait Gait Assistance Required: Minimum Assistance,Moderate Assistance Distance (Feet) 20 Able to Maintain Weight Bearing Status Yes During Gait Assistive Devices Assistive Device Gait Belt,Small Based Quad Cane,Front Wheeled Walker Orthotic/Prosthetic Devices or Brace: No Gait Deviations General Gait Pattern Antalgic,Ataxic,Decreased Stride Length,Decreased Feet Clearance,Flexed Trunk,Narrow Based Gait,Step-to Gait Factors Limiting Gait Function Factors Limiting Gait Function Decreased Activity Tolerance, Decreased Strength,Difficulty Following Directions,Limited Range of Motion,Poor Balance, Poor Safety Awareness PT-Balance Assessment Sitting Balance and Reactions Static Sitting Balance Ability Normal Dynamic Sitting Balance Ability Good Standing Balance and Reactions Static Standing Balance Ability Fair Dynamic Standing Balance Ability Poor Device Used FWW M5 PT-IP Objective Assessments Start: 12/10/24 15:15 Freq: NEEDED Status: Active Protocol: Document 12/10/24 13:50 AB (Rec: 12/10/24 15:36 AB [id number]) Orientation Orientation/Cognition Level of Alertness Alert Orientation Name,Situation Language Function Ability Hard of Hearing Safety Awareness Decreased Safety Awareness Memory Description Short Term Impaired,Senior Living Impaired Gross Range of Motion Lower Extremity ROM Assessment Within Functional Limits Strength Lower Extremity Strength Hip 4-/5 Knee 4-/5 Muscle Tone Muscle Tone WNL Yes M6 PT-IP Treatment Start: 12/10/24 15:15 Freq: NEEDED Status: Active Protocol: Document 12/10/24 13:50 AB (Rec: 12/10/24 15:36 AB [id number]) Physical Therapy Treatment Education Education Provided Safety M7 PT-IP Assessment and Plan Start: 12/10/24 15:15 Freq: NEEDED Status: Active Protocol: Document 12/10/24 13:50 AB (Rec: 12/10/24 15:36 AB [id number]) PT Summary Assessment and Plan Potential Rehabilitation Potential Fair Status of Condition at Evaluation Evolving Summary Impairments Pain,ROM,Strength,Balance, Coordination,Sensation,Tone, Cognition,Bed Mobility, Transfers,Gait,Activity Tolerance Assessment Summary pt is a 79 y/o M who is admitted for bradycardia. pt requiring min to mod A with mobility using FWW with (+) LOB needing mod A for recovery . pt with decrease safety awareness and inattention on L side. pt will require 24/7 assist at home and at this time will require SNF rehab. will continue to assess. informed special education case manager and requested OT eval order. Goals Bed Mobility Goal Independent Transfer Goal Standby Assistance,Front Wheeled Walker Gait Goal Standby Assistance,Front Wheel Walker Gait Distance 100 Other Goals improve transfers, ambulation using LRAD/quad cane SBA ~ 100 ft up/down 3 steps B rails SBA Days to Meet Goals 10 Frequency of Treatment Frequency Of Treatment Once a Day Treatment Plan Physical Therapy Treatment Plan Bed Mobility Training,Transfer Training,Gait Training, Therapeutic Exercise,Balance Retraining,Discharge Planning, Hot or Cold Pack,Neuromuscular Re-ed,Coordination Retraining ,Manual Therapy Precautions Other Precautions falls Recommendations To Nursing Amount of Assist Needed 1 Person Assist Discharge Recommendations PT Discharge Recommendations SNF Rehab Transportation Needs at Discharge Wheelchair/Cabulance - PT assist 1
--- NOTE | 2024-12-10 15:33 | P.PN_ITS ---
Subjective Subjective Interval history: 79 M admitted with dizziness and bradycardia, he reports improvement this morning and denied dizzyness, shortness of breath, or chest pain. He was discharged but when working with PT was unsteady, recommended for SNF, discharge cancelled and will look at SNF options. Exam Vital Signs (past 8 hours): - 12/10/24 08:00 Temperature 98.5 F Pulse Rate 52 L Respiratory Rate 16 Blood Pressure 152/73 H Pulse Oximetry 98 Oxygen Flow Rate 0 Oxygen Delivery Method Room Air Oxygen Flow Rate 0 Narrative Exam Narrative: NAD, alert and oriented, fluent speech, calm. Lungs clear, normal rate and effort. Heart regular, no murmur gallop or rub. Abdomen is soft, non distended and non tender. Extremities are free of edema. Objective Labs 12/09/24 14:45 12/09/24 14:45 Labs: Laboratory Results - last 24 hr 12/09/24 14:45 TSH 3.03 PFSH Social History household members: friend(s) Smoking Status: Former smoker alcohol intake: current Assessment & Plan Assessment & Plan narrative: 1. bradycardia with first-degree heart block, present on admission and active, improved. 2. Transient dizziness with possible presyncope, present on admission and active. 3. Remote CVA, present on admission stable. 4. Atrial fibrillation, not present on admission are active. 5. Hyperlipidemia, present on admission and stable. 6. History of vertigo, present on admission and not clearly active. Plan: - continue observation status. PT recommending SNF, OT consulted as well. finish production manager looking at possible placement options. - holding metoprolol and home antihypertensives, resumed home amlodipine today - check orthostatics qshift. - stop IV fluids. Dispo: possible SNF vs discharge home. Pending further PT and OT recommendations, and placement options. Time-Based Coding :: [TOTAL MINUTES] spent with patient and on the chart (including review of chart, obtaining history, exam, reviewing outside data, placing orders, documenting exam and treatment plan, and counseling patient) on [DATE].
[2024-12-10 16:00] VITALS: BP 155/81; PULSE 45; RESP 16; TEMP 36.7; O2SAT 97
--- NOTE | 2024-12-10 17:02 | CM.DPNOTE ---
DCP Continued: Reviewed EMR and team rounds for pt?s medical status. Pt had orders to dc home but PT evaluation indicated SNF Rehab recommendations. Per PT, pt had loss of balance 4x and was confused throughout evaluation. DCP notified hospitalist of above - hospitalist cancelled dc and gave verbal order for OT evaluation. FURNITURE MANAGER placed OT orders. OT evaluation pending for when OT returns next day. DCP entered room, present in the room are pt and his girlfriend, Elsy. Per girlfriend, pt has been increasingly weak/confused since his CVA in September 2024 (was admitted at another local hospital on [facility]). He did not go to SNF rehab after this or any PT/OT at home or in the community. DCP discussed recommendation from PT, pt and pt girlfriend agreeable with SNF plan. FURNITURE MANAGER provided Medicare Choice list, highlighting facilities that are contracted with pt's [employer] insurance - [facility] and [facility] are their preferences. It is reported that pt and girlfriend both do not drive and typically get rides from friends or utilize public transport. Pt girlfriend states they live in a 42' trailer and hallways are narrow, home health is not an option at their residence. Per GUILHERME RN, pt still in Observation status, will review again the following day. Plan: Anticipating SNF Rehab dc, pending referral/acceptance. CM Team will continue to follow for coordination of discharge plans. TERESE DavenportSW
[2024-12-10 20:00] VITALS: BP 156/80; PULSE 46; RESP 16; TEMP 36.2; O2SAT 98
[2024-12-10] MEDS: SODIUM CHLORIDE 0.9% FLUSH 10 ML IV (21:12)
[2024-12-10 21:35] VITALS: BP 168/80; BP 178/100; BP 178/94; PULSE 43; PULSE 45; PULSE 49
--- NOTE | 2024-12-10 23:28 | PC.NURSE ---
Patient was able to state his name, birthdate and place but otherwise not oriented. Breath sounds CTA with RA sat of 98%. Angry with RN regarding being awakened, having extra tele lead removed and socks removed to assess skin so when orthostatics checked his BP was more elevated at 178/100; did drop to 168/80 between lying and standing position. He is bradycardic with rate in 40's and telemetry reading was SB w/1st degree AVB; denied any dizziness. Denied nausea. BT present and abdomen is soft; had BM earlier today. He is voiding on toilet and denied any dysuria. Is able to turn himself in bed but is very slow in doing so. He was able to get himself to a standing position and seemed steady on feet; used walker. Gait not observed at time of assessment. He denied any pain, tingling or numbness. Is wearing bilateral calf SCD's. Fall risk assessment is high and bed alarm is activated.
[2024-12-11] VITALS: BP 181/100; PULSE 47; RESP 12; TEMP 36.6; O2SAT 96
[2024-12-11 04:00] VITALS: BP 169/86; PULSE 53; RESP 12; TEMP 36.9; O2SAT 96
[2024-12-11 08:24] VITALS: BP 167/68; PULSE 47; RESP 18; TEMP 36.2; O2SAT 95
[2024-12-11] MEDS: AMLODIPINE 5 MG TABLET 2.5 MG PO (08:30)
[2024-12-11] MEDS: ATORVASTATIN 20 MG TABLET 80 MG PO (08:30)
[2024-12-11] MEDS: SERTRALINE 50 MG TABLET 25 MG PO (08:31)
[2024-12-11] MEDS: SODIUM CHLORIDE 0.9% FLUSH 10 ML IV ×2 (08:32→20:36)
[2024-12-11] MEDS: APIXABAN 5 MG TABLET PO ×2 (08:32→20:36)
[2024-12-11] MEDS: levETIRAcetam 250 MG TABLET 500 MG PO ×2 (08:32→20:36)
--- NOTE | 2024-12-11 09:51 | PT.IPTN ---
Physical Therapy Treatment Note M2 PT-IP Current Condition Start: 12/10/24 15:15 Freq: NEEDED Status: Active Protocol: Document 12/10/24 13:50 AB (Rec: 12/10/24 15:36 AB [id number]) Physical Therapy Current Condition Current Condition Evaluation Date 12/10/24 Treatment Diagnosis bradycardia; difficulty in walking Onset Date 12/09/24 M3 PT-IP Subjective Start: 12/10/24 15:15 Freq: NEEDED Status: Active Protocol: Document 12/11/24 09:27 KS (Rec: 12/11/24 11:22 KS [id number]) Subjective Physical Therapy Visit Type Type Treatment Note Visit Start Time 09:27 Visit Stop Time 09:51 Number of COMMERCIAL LOAN PROCESSOR Visits 1 Physical Therapy Visit Comments Patient Comments agreeable to do PT M4 PT-IP Mobility and Gait Start: 12/10/24 15:15 Freq: NEEDED Status: Active Protocol: Document 12/11/24 09:27 KS (Rec: 12/11/24 11:22 KS [id number]) PT-Bed Mobility Assessment Supine to Sit Supine to Sit Standby Assistance,Head of Bed Elevated PT-Transfer Assessment Sit to and From Stand Sit to and from Stand Minimal Assistance,1 Person Assistance,Use of Upper Extremities Equipment Transfer Assistive Device Gait Belt,Front Wheeled Walker Orthotic/Prosthetic Devices or Brace: No Transfers Transfer Destination Chair Transfer Technique ambulated Transfer Ability Level of Assist Minimal Assistance,1 Person Assistance,Use of Upper Extremities Comments Mobility Comments Pt in bed upon arrival, agreeable to PT. Pt sup<>sit SBA and able to scoot EOB. Min A for sit<>stand w/ FWW. Pt able to perform [address] followed by ~40 ft ambulation w/ FWW. Pt LLE continually crosses midline during ambulation, increasng risk of falls but had no LOB today. Pt returned to chair and completed ankle pumps, quad sets, glute sets, and LAQs. Pt left in chair w/ all needs in reach. Gait Assessment Gait Gait Assistance Required: Contact Guard Assist,1 Person Assist Distance (Feet) 40 Able to Maintain Weight Bearing Status Yes During Gait Assistive Devices Assistive Device Gait Belt,Front Wheeled Walker Orthotic/Prosthetic Devices or Brace: No Gait Deviations General Gait Pattern Antalgic,Ataxic,Decreased Stride Length,Decreased Feet Clearance,Flexed Trunk,Narrow Based Gait,Step-to Gait Factors Limiting Gait Function Factors Limiting Gait Function Decreased Activity Tolerance, Decreased Strength,Difficulty Following Directions,Limited Range of Motion,Poor Balance, Poor Safety Awareness Comments Gait Comments see mobility section for more details. PT-Balance Assessment Sitting Balance and Reactions Static Sitting Balance Ability Normal Dynamic Sitting Balance Ability Good Standing Balance and Reactions Static Standing Balance Ability Fair Dynamic Standing Balance Ability Poor Device Used FWW M5 PT-IP Objective Assessments Start: 12/10/24 15:15 Freq: NEEDED Status: Active Protocol: Document 12/10/24 13:50 AB (Rec: 12/10/24 15:36 AB [id number]) Orientation Orientation/Cognition Level of Alertness Alert Orientation Name,Situation Language Function Ability Hard of Hearing Safety Awareness Decreased Safety Awareness Memory Description Short Term Impaired,Retirement Impaired Gross Range of Motion Lower Extremity ROM Assessment Within Functional Limits Strength Lower Extremity Strength Hip 4-/5 Knee 4-/5 Muscle Tone Muscle Tone WNL Yes M6 PT-IP Treatment Start: 12/10/24 15:15 Freq: NEEDED Status: Active Protocol: Document 12/11/24 09:27 KS (Rec: 12/11/24 11:22 KS [id number]) Physical Therapy Treatment Exercises Exercises Ankle Pumps,Gluteal Sets,Quad Sets,Seated Knee Flexion/ Extension Education Education Provided Safety M7 PT-IP Assessment and Plan Start: 12/10/24 15:15 Freq: NEEDED Status: Active Protocol: Document 12/11/24 09:27 KS (Rec: 12/11/24 11:22 KS [id number]) PT Summary Assessment and Plan Potential Rehabilitation Potential Fair Summary Impairments Pain,ROM,Strength,Balance, Coordination,Sensation,Tone, Cognition,Bed Mobility, Transfers,Gait,Activity Tolerance Progress Towards Goals Progressing Toward Goals Assessment Summary Pt showing some improvement w/ mobility today however remains a high fall risk due to LLE frequently crossing midline during ambulation and poor balance. Pt will benefit from SNF to improve functional mobility independence. Goals Bed Mobility Goal Independent Transfer Goal Standby Assistance,Front Wheeled Walker Gait Goal Standby Assistance,Front Wheel Walker Gait Distance 100 Other Goals improve transfers, ambulation using LRAD/quad cane SBA ~ 100 ft up/down 3 steps B rails SBA Days to Meet Goals 10 Frequency of Treatment Frequency Of Treatment Once a Day Treatment Plan Physical Therapy Treatment Plan Bed Mobility Training,Transfer Training,Gait Training, Therapeutic Exercise,Balance Retraining,Discharge Planning, Hot or Cold Pack,Neuromuscular Re-ed,Coordination Retraining ,Manual Therapy Precautions Other Precautions falls Recommendations To Nursing Amount of Assist Needed 1 Person Assist Discharge Recommendations PT Discharge Recommendations SNF Rehab Transportation Needs at Discharge Wheelchair/Cabulance - PT assist 1
--- NOTE | 2024-12-11 11:40 | OT.IP.EVAL ---
Occupational Therapy Inpatient Evaluation/Re-Eval M1 PT/OT-IP Prior Functional Status Start: 12/10/24 15:15 Freq: NEEDED Status: Active Protocol: Document 12/11/24 11:41 [facility] (Rec: 12/11/24 12:06 [facility] [id number]) Medical Review Prior Functional Status Medical History Reviewed Yes Communication very [place]AR[place]; able to respond to questions but needs repetitions Mobility and Gait pt stated that he was modified independent with all mobilities and ambulation using a quad cane indoors and a FWW for outdoor mobility Social History Household Members friend(s) Living Arrangements RV Number of Floors (Floors) One Floor Number of Stairs To Enter/Railing? 3 steps B rails to enter Home Environment Standard Height Toilet,Tub/ Shower,Built-In Shower Seat Home Equipment Front Wheel Walker,Quad Cane, Hand Held Shower,Grab Bars Near Toilet,Grab Bars In Shower Additional Social History Comment pt stated that he has his friends Kim and Shayna at home to assist him; mainly, Kim assist him per pt M2 OT-IP Current Condition Start: 12/11/24 11:39 Freq: Status: Active Protocol: Document 12/11/24 11:41 [facility] (Rec: 12/11/24 12:06 [facility] [id number]) Occupational Therapy Current Condition Current Condition Evaluation Date 12/11/24 Treatment Diagnosis Bradycardia, neuro symptoms Diagnosis Onset Date 12/09/24 M3 OT- IP Subjective and Pain Start: 12/11/24 11:39 Freq: Status: Active Protocol: Document 12/11/24 11:41 [facility] (Rec: 12/11/24 12:06 [facility] [id number]) OT- Subjective Occupational Therapy Visit Type Type Initial Evaluation Visit Start Time 10:55 Visit Stop Time 11:40 Occupational Therapy Visit Comments Patient Comments Pt agreed to get up. Able to notify pt's nurse of left visual deficits and unsteadiness of his balance. Patient/Caregiver Goals TO get better. OT Pain Assessment Pain When Pain Assessed At Rest Pain Present Pain Present Denied Pain M4 OT- IP ADL's Start: 12/11/24 11:39 Freq: Status: Active Protocol: Document 12/11/24 11:41 [facility] (Rec: 12/11/24 12:06 [facility] [id number]) OT [id number] Comments OT Self-Feeding Comments Not at meal time. Pt may need assist for orientation of the plate due to decreased vision, appears to have left hemianopsia. OT ADL-Grooming Comments OT Grooming Comments Pt just agreed to brush his hair at this time. OT ADL-Oral Care Comments Oral Care Comments Pt not wanting to perform. OT ADL-Dressing General Eval Lower Body Dressing Ability Standby Assistance Comments OT Dressing Comments Pt neglecting use of left hand at times and using more of his right hand to leanne/doff his socks. OT ADL-Toileting Comments OT Toileting Comments Not performed. OT ADL-Bathing Comments OT Bathing Comments Pt will benefit from assist. M5 OT- IP IADL's Start: 12/11/24 11:39 Freq: Status: Active Protocol: Document 12/11/24 11:41 [facility] (Rec: 12/11/24 12:06 [facility] [id number]) OT-Instrumental Activities of Daily Living Home Safety Awareness Home Safety Comments Pt decreased safety awareness for FWW and balance at this time as unsteady on his feet and not aware of visual deficits- appears to have left hemianopsia. Medication Management Medication Management Caregiver Administers Money Management Money Management Caregiver Provides Assistance Meal Preparation Meal Preparation Caregiver Provides Assist Medical Cost Consultant Medical Cost Consultant Caregiver Provides Assist M6 OT- IP Functional Cognition Start: 12/11/24 11:39 Freq: Status: Active Protocol: Document 12/11/24 11:41 [facility] (Rec: 12/11/24 12:06 [facility] [id number]) Cognitive Factors Limiting Selfcare Function Cognitive Ability Level of Alertness Alert Patient Orientation Name,Place Attention Span Ability Capable of Focused Attention, Capable of Sustained Attention Ability to Follow Commands Able to Follow One Step Commands Cognitive Comments Cognitive Assessment Comments Pt able to follow commands with increased time. Pt is also very [place] and at times appears to have difficulty to follow. NOted left neglect with left hand and left hemianopsia and unable to read from the menu accurately. OT- Vision and Hearing OT- Hearing Assessment OT- Hearing Assessment Hearing Impaired,Use of Hearing Aids OT- Vision Assessment Visual Acuity Glasses For Reading Visual Seals Impaired Visual Spacial Neglect Left Vision Assessment Comments Pt educated to turn and move his eyes/head to the left to see. IN addition to use his finger to find the left edge of the print/words so able to read all the information. M7 OT- IP Mobility and Balance Start: 12/11/24 11:39 Freq: Status: Active Protocol: Document 12/11/24 11:41 [facility] (Rec: 12/11/24 12:06 [facility] [id number]) OT-Transfer Assessment Sit to and From Stand Sit to and from Stand Contact Guard Assistance Transfers Transfer Ability Minimal Assistance Technique Transfer Destination Chair Transfer Technique Stand Step Pivot Devices Transfer Assistive Devices Gait Belt,Front Wheeled Walker Comments Mobility Comments CGA to stand from the recliner to FWW. Pt a bit unsteady on his feet and having loss of balance while standing at the sink and needing assist. OT- Balance Assessment Sitting Balance and Reactions Static Sitting Balance Ability Good Dynamic Sitting Balance Ability Good Standing Balance and Reactions Static Standing Balance Ability Fair Dynamic Standing Balance Ability Poor M8 OT- IP Objective Assessments Start: 12/11/24 11:39 Freq: Status: Active Protocol: Document 12/11/24 11:41 [facility] (Rec: 12/11/24 12:06 [facility] [id number]) OT Gross Range of Motion Upper Extremity Range of Motion Assessment Within Functional Limits OT Strength Upper Extremity Strength Assessment Left Impaired Comments Strength Comments RUE 4/5, LUE 4-/5 shoulder, elbow 4/5 and hand 4-/5. OT- Coordination Assessment Upper Extremity Finger to Nose Test Left UE Impaired M9 OT- IP Assessment and Plan Start: 12/11/24 11:39 Freq: Status: Active Protocol: Document 12/11/24 11:41 [facility] (Rec: 12/11/24 12:06 [facility] [id number]) OT Summary Assessment and Plan Potential Rehabilitation Potential Good Analytic Complexity at Evaluation Moderate Summary OT Impairments Strength,Balance,Coordination, Functional Cognition, Functional Mobility,Self- Feeding,Grooming,Dressing, Toileting,Bathing,Toilet Transfers,Shower Transfers, Activity Tolerance Progress Towards Goals Slow Progress due to Medical Issues,Slow Progress due to Activity Tolerance,Slow Progress due to Cognition Assessment Summary Pt MOD complexity and main barriers are left visual deficits, decreased balance, and strength. Pt to go to skilled rehab when medically stable. Goals Self-Feeding Goal Independent Grooming Goal Independent Dressing Goal Independent Toileting Goal Independent Bathing Goal Standby Assistance Toilet Transfer Goal Independent Shower Transfer Goal Standby Assistance OT-Other Goals Pt to be able to incorporate visual strategies 100% of the time for ADL and mobility needs. Days to Meet Goals 20 Frequency of Treatment Other frequency 5x/week Treatment Plan OT Treatment Plan ADL Training,Functional Cognition Training,Functional Mobility,Vision Retraining, Patient/Family Education, Discharge Planning Discharge Recommendations OT Discharge Recommendations SNF Rehab Transportation Needs at Discharge Private Vehicle,Wheelchair/ Cabulance
[2024-12-11 12:00] VITALS: BP 132/77; PULSE 57; RESP 18; TEMP 36.5; O2SAT 98
--- NOTE | 2024-12-11 13:12 | CM.DPC ---
DCP SNF Planning: Per MD, pt making progress and likely stable for d/c once SNF secured and insurance auth obtained. PT/OT, still recommending SNF. LUKE [facility] as they are both contracted with his [employer] [facility]. Gianluca Cruz confirms they can accept and submitted for [employer] auth today 12/11. [facility] can also accept if [place] plan falls through. PASRR completed but needs MD signature for exempted hospital discharge for depression/Zoloft. LUKE met bedside with pt, sig other not bedside, and updated on above and he confirms he is agreeable with d/c to [facility] if his insurance auth's SNF. Plan: LUKE to follow [facility] [employer] [facility] obtained, hopefully tomorrow Sunday. ASTON Nunez
--- NOTE | 2024-12-11 16:26 | P.PN_ITS ---
Subjective Subjective Interval history: 79 M admitted with dizziness and bradycardia, he reports improvement this morning and denied dizzyness, shortness of breath, or chest pain. He was discharged but when working with PT was unsteady, recommended for SNF, discharge cancelled and looking at SNF options. Exam Vital Signs (past 8 hours): - 12/11/24 12:00 Temperature 97.7 F Pulse Rate 57 L Respiratory Rate 18 Blood Pressure 132/77 Pulse Oximetry 98 Oxygen Flow Rate 0 Oxygen Delivery Method Room Air Oxygen Flow Rate 0 Narrative Exam Narrative: NAD, alert and oriented, fluent speech, calm. Lungs clear, normal rate and effort. Heart regular, no murmur gallop or rub. Abdomen is soft, non distended and non tender. Extremities are free of edema. Objective Labs 12/09/24 14:45 12/09/24 14:45 [facility] Social History household members: friend(s) Smoking Status: Former smoker alcohol intake: current Assessment & Plan Assessment & Plan narrative: 1. bradycardia with first-degree heart block, present on admission and active, improved. 2. Transient dizziness with possible presyncope, present on admission and active. 3. Remote CVA, present on admission stable. 4. Atrial fibrillation, not present on admission are active. 5. Hyperlipidemia, present on admission and stable. 6. History of vertigo, present on admission and not clearly active. Plan: - continue observation status. PT recommending SNF, OT consulted as well. manager access looking at possible placement options. - holding metoprolol and have resumed home amlodipine. No significant bradycardic events since admission. No heart blocks on telemetry either. - orthostatics negative today, can stop checking qshift. - stopped IV fluids on 12/10. Dispo: possible SNF vs discharge home. Pending further PT and OT recommendations, and placement options. Time-Based Coding :: [TOTAL MINUTES] spent with patient and on the chart (including review of chart, obtaining history, exam, reviewing outside data, placing orders, documenting exam and treatment plan, and counseling patient) on [DATE].
[2024-12-11 18:21] VITALS: BP 157/74
[2024-12-11 20:00] VITALS: BP 169/97; PULSE 49; RESP 12; TEMP 36.6; O2SAT 98
[2024-12-12] VITALS (8 sets, daily range): BP systolic 151–189; BP diastolic 80–103; PULSE 49–62; RESP 12–16; TEMP 35.9–36.7; O2SAT 96–98
[2024-12-12] MEDS: levETIRAcetam 250 MG TABLET 500 MG PO ×2 (09:20→20:26)
[2024-12-12] MEDS: SERTRALINE 50 MG TABLET 25 MG PO (09:20)
[2024-12-12] MEDS: APIXABAN 5 MG TABLET PO ×2 (09:21→20:26)
[2024-12-12] MEDS: SODIUM CHLORIDE 0.9% FLUSH 10 ML IV ×2 (09:21→20:26)
[2024-12-12] MEDS: ATORVASTATIN 20 MG TABLET 80 MG PO (09:21)
[2024-12-12] MEDS: AMLODIPINE 5 MG TABLET 2.5 MG PO (09:21)
--- NOTE | 2024-12-12 11:39 | CM.DPNOTE ---
Addendum entered by ASTON Solorio 12/12/24 16:57: SNF DCP Update: Per Jo at [facility], pt's insurance authorization has been obtained. [facility] requests wheelchair transport anytime in the afternoon, to be arranged by this [employer]INT [employer]ER and billed to their facility. RN-RN report #: [phone]. DCP coordinated transport via [facility] on 12/13 at 2:30pm. Relayed this information to [facility]. DCP notified pt RN, Coordiator, hospitalist of above. DCP cancelled referral with [facility]. GRETCHEN dover, needs MD signature. Plan: [facility] on 12/13 with transport via [facility] at 2:30pm. RUBY Davenport Original Note: DCP Continued: Reviewed EMR and team rounds for pt?s medical status. Per hospitalist, pt should be medically cleared to discharge to SNF, pending acceptance. DCP confirmed with pt's first choice, [facility] Admissions, that pt's insurance authorization is still under review. Pt has a referral out to second choice, [facility], will need to cancel that referral if authorization is approved at other SNF. Plan: Anticipating dc to SNF Rehab, pending insurance authorization. CM Team will continue to follow for coordination of discharge plans. RUBY Davenport
--- NOTE | 2024-12-12 12:20 | OT.IP.TRT ---
Occupational Therapy Treatment Note M2 OT-IP Current Condition Start: 12/11/24 11:39 Freq: Status: Active Protocol: Document 12/11/24 11:41 [facility] (Rec: 12/11/24 12:06 [facility] [id number]) Occupational Therapy Current Condition Current Condition Evaluation Date 12/11/24 Treatment Diagnosis Bradycardia, neuro symptoms Diagnosis Onset Date 12/09/24 M3 OT- IP Subjective and Pain Start: 12/11/24 11:39 Freq: Status: Active Protocol: Document 12/12/24 12:22 [facility] (Rec: 12/12/24 12:27 [facility] [id number]) OT- Subjective Occupational Therapy Visit Type Type Treatment Note Visit Start Time 12:10 Visit Stop Time 12:20 Occupational Therapy Visit Comments Patient Comments Pt eating his lunch. Patient/Caregiver Goals TO get better. OT Pain Assessment Pain When Pain Assessed At Rest Pain Present Pain Present Denied Pain M4 OT- IP ADL's Start: 12/11/24 11:39 Freq: Status: Active Protocol: Document 12/12/24 12:22 [facility] (Rec: 12/12/24 12:27 [facility] [id number]) OT UKO-[id number]-[id number] General Evaluation Self-Feeding Ability Standby Assistance,Maximum Assistance Comments OT Self-Feeding Comments Pt needing MAX AX to help incorporate his LUE to be able to hold the fork while cutting his food with his right hand. Pt still needing cues to move his eyes and head left so able to find items on his tray. M5 OT- IP IADL's Start: 12/11/24 11:39 Freq: Status: Active Protocol: Document 12/11/24 11:41 [facility] (Rec: 12/11/24 12:06 [facility] [id number]) OT-Instrumental Activities of Daily Living Home Safety Awareness Home Safety Comments Pt decreased safety awareness for FWW and balance at this time as unsteady on his feet and not aware of visual deficits- appears to have left hemianopsia. Medication Management Medication Management Caregiver Administers Money Management Money Management Caregiver Provides Assistance Meal Preparation Meal Preparation Caregiver Provides Assist Senior Software Qa Engineer Senior Software Qa Engineer Caregiver Provides Assist M6 OT- IP Functional Cognition Start: 12/11/24 11:39 Freq: Status: Active Protocol: Document 12/11/24 11:41 [facility] (Rec: 12/11/24 12:06 [facility] [id number]) Cognitive Factors Limiting Selfcare Function Cognitive Ability Level of Alertness Alert Patient Orientation Name,Place Attention Span Ability Capable of Focused Attention, Capable of Sustained Attention Ability to Follow Commands Able to Follow One Step Commands Cognitive Comments Cognitive Assessment Comments Pt able to follow commands with increased time. Pt is also very [place] and at times appears to have difficulty to follow. NOted left neglect with left hand and left hemianopsia and unable to read from the menu accurately. OT- Vision and Hearing OT- Hearing Assessment OT- Hearing Assessment Hearing Impaired,Use of Hearing Aids OT- Vision Assessment Visual Acuity Glasses For Reading Visual Seals Impaired Visual Spacial Neglect Left Vision Assessment Comments Pt educated to turn and move his eyes/head to the left to see. IN addition to use his finger to find the left edge of the print/words so able to read all the information. M7 OT- IP Mobility and Balance Start: 12/11/24 11:39 Freq: Status: Active Protocol: Document 12/11/24 11:41 [facility] (Rec: 12/11/24 12:06 [facility] [id number]) OT-Transfer Assessment Sit to and From Stand Sit to and from Stand Contact Guard Assistance Transfers Transfer Ability Minimal Assistance Technique Transfer Destination Chair Transfer Technique Stand Step Pivot Devices Transfer Assistive Devices Gait Belt,Front Wheeled Walker Comments Mobility Comments CGA to stand from the recliner to FWW. Pt a bit unsteady on his feet and havign loss of balance while standing at the sink and needing assist. OT- Balance Assessment Sitting Balance and Reactions Static Sitting Balance Ability Good Dynamic Sitting Balance Ability Good Standing Balance and Reactions Static Standing Balance Ability Fair Dynamic Standing Balance Ability Poor M8 OT- IP Objective Assessments Start: 12/11/24 11:39 Freq: Status: Active Protocol: Document 12/11/24 11:41 [facility] (Rec: 12/11/24 12:06 [facility] [id number]) OT Gross Range of Motion Upper Extremity Range of Motion Assessment Within Functional Limits OT Strength Upper Extremity Strength Assessment Left Impaired Comments Strength Comments RUE 4/5, LUE 4-/5 shoulder, elbow 4/5 and hand 4-/5. OT- Coordination Assessment Upper Extremity Finger to Nose Test Left UE Impaired M9 OT- IP Assessment and Plan Start: 12/11/24 11:39 Freq: Status: Active Protocol: Document 12/12/24 12:22 [facility] (Rec: 12/12/24 12:27 [facility] [id number]) OT Summary Assessment and Plan Potential Rehabilitation Potential Good Analytic Complexity at Evaluation Moderate Summary OT Impairments Strength,Balance,Coordination, Functional Cognition, Functional Mobility,Self- Feeding,Grooming,Dressing, Toileting,Bathing,Toilet Transfers,Shower Transfers, Activity Tolerance Progress Towards Goals Progressing Toward Goals Assessment Summary Pt able to recall that he needs to turn his eyes and head to find items on the food tray. Pt still needs cues to look left during meal time 25% of the time. Pt to go to skilled rehab when medically stable. Goals Self-Feeding Goal Independent Grooming Goal Independent Dressing Goal Independent Toileting Goal Independent Bathing Goal Standby Assistance Toilet Transfer Goal Independent Shower Transfer Goal Standby Assistance OT-Other Goals Pt to be able to incorporate visual strategies 100% of the time for ADL and mobility needs. Days to Meet Goals 19 Frequency of Treatment Other frequency 5x/week Treatment Plan OT Treatment Plan ADL Training,Functional Cognition Training,Functional Mobility,Vision Retraining, Patient/Family Education, Discharge Planning Discharge Recommendations OT Discharge Recommendations SNF Rehab Transportation Needs at Discharge Private Vehicle,Wheelchair/ Cabulance
--- NOTE | 2024-12-12 15:45 | PT.IPTN ---
Physical Therapy Treatment Note M2 PT-IP Current Condition Start: 12/10/24 15:15 Freq: NEEDED Status: Active Protocol: Document 12/10/24 13:50 [facility] (Rec: 12/10/24 15:36 [facility] [id number]) Physical Therapy Current Condition Current Condition Evaluation Date 12/10/24 Treatment Diagnosis bradycardia; difficulty in walking Onset Date 12/09/24 M3 PT-IP Subjective Start: 12/10/24 15:15 Freq: NEEDED Status: Active Protocol: Document 12/12/24 15:45 [facility] (Rec: 12/12/24 16:54 [facility] [id number]) Subjective Physical Therapy Visit Type Type Treatment Note Visit Start Time 15:45 Visit Stop Time 16:00 Number of FOREST RANGER TECHNICIAN Visits 0 Physical Therapy Visit Comments Patient Comments agreeable to do PT M4 PT-IP Mobility and Gait Start: 12/10/24 15:15 Freq: NEEDED Status: Active Protocol: Document 12/12/24 15:45 [facility] (Rec: 12/12/24 16:54 [facility] [id number]) PT-Bed Mobility Assessment Supine to Sit Supine to Sit Standby Assistance,Head of Bed Elevated,Bedrails Sit to Supine Sit to Supine Standby Assistance,Head of Bed Elevated,Bedrails PT-Transfer Assessment Sit to and From Stand Sit to and from Stand Contact Guard Assistance, Minimal Assistance,1 Person Assistance,Use of Upper Extremities Equipment Transfer Assistive Device Gait Belt,Front Wheeled Walker Orthotic/Prosthetic Devices or Brace: No Comments Mobility Comments pt in bed and agreed to do PT. BP: 160/78 CT: 54 pt completed supine to sit SBA . able to sit on EOB. sit to stand min A with (+) L sided LOB requiring min A to recover . pt can be impulsive. pt ambulated in room using FWW mod A . cued to increase ROMA and to move LLE to the side to prevent from crossing midline . pt initially unable to follow. provided pt with verbal, visual and tactile cues to be able to carryover but continues to require constant cues. able to ambulate min A after correcting increasing ROMA. pt continues to tend to run into things on L side. pt sat on EOB. educated on sit<>stand techniques to prevent from L sided LOB. pt completed sit<> stand x 2 requiring CGA and max cues. pt refused to sit on the chair stating that it is not tool comfortable and wants to go back to bed. sit to supine SBA. positioned pt on the bed. call light and table placed within reach. encouraged pt to get up on the chair for dinner and to ask for nurse's assistance. pt agreeding informed nurse. Gait Assessment Gait Gait Assistance Required: Minimum Assistance,Moderate Assistance,1 Person Assist Distance (Feet) 75 Able to Maintain Weight Bearing Status Yes During Gait Assistive Devices Assistive Device Gait Belt,Front Wheeled Walker Orthotic/Prosthetic Devices or Brace: No Gait Deviations General Gait Pattern Ataxic,Decreased Stride Length ,Decreased Feet Clearance, Narrow Based Gait Factors Limiting Gait Function Factors Limiting Gait Function Decreased Activity Tolerance, Decreased Strength,Difficulty Following Directions,Limited Range of Motion,Poor Balance, Poor Safety Awareness M5 PT-IP Objective Assessments Start: 12/10/24 15:15 Freq: NEEDED Status: Active Protocol: Document 12/10/24 13:50 [facility] (Rec: 12/10/24 15:36 [facility] [id number]) Orientation Orientation/Cognition Level of Alertness Alert Orientation Name,Situation Language Function Ability Hard of Hearing Safety Awareness Decreased Safety Awareness Memory Description Short Term Impaired,Direct Support Worker Impaired Gross Range of Motion Lower Extremity ROM Assessment Within Functional Limits Strength Lower Extremity Strength Hip 4-/5 Knee 4-/5 Muscle Tone Muscle Tone WNL Yes M6 PT-IP Treatment Start: 12/10/24 15:15 Freq: NEEDED Status: Active Protocol: Document 12/12/24 15:45 [facility] (Rec: 12/12/24 16:54 [facility] [id number]) Physical Therapy Treatment Education Education Provided Safety M7 PT-IP Assessment and Plan Start: 12/10/24 15:15 Freq: NEEDED Status: Active Protocol: Document 12/12/24 15:45 [facility] (Rec: 12/12/24 16:54 [facility] [id number]) PT Summary Assessment and Plan Potential Rehabilitation Potential Fair Summary Impairments Pain,ROM,Strength,Balance, Coordination,Sensation,Tone, Cognition,Bed Mobility, Transfers,Gait,Activity Tolerance Progress Towards Goals Slow Progress due to Activity Tolerance,Slow Progress - Other Assessment Summary pt improving slowly with mobility requiring min to mod A for ambulation using FWW and max cues for safety. pt continues to have (+) LOB and will require SNF rehab to improve overall strength and mobility. Goals Bed Mobility Goal Independent Transfer Goal Standby Assistance,Front Wheeled Walker Gait Goal Standby Assistance,Front Wheel Walker Gait Distance 100 Other Goals improve transfers, ambulation using LRAD/quad cane SBA ~ 100 ft up/down 3 steps B rails SBA Days to Meet Goals 10 Frequency of Treatment Frequency Of Treatment Once a Day Treatment Plan Physical Therapy Treatment Plan Bed Mobility Training,Transfer Training,Gait Training, Therapeutic Exercise,Balance Retraining,Discharge Planning, Hot or Cold Pack,Neuromuscular Re-ed,Coordination Retraining ,Manual Therapy Precautions Other Precautions falls Recommendations To Nursing Amount of Assist Needed 1 Person Assist Discharge Recommendations PT Discharge Recommendations SNF Rehab Transportation Needs at Discharge Wheelchair/Cabulance - PT assist 1
--- NOTE | 2024-12-12 18:32 | P.PN_ITS ---
Subjective Subjective Interval history: 79 M admitted with dizziness and bradycardia, he reports improvement this morning and denied dizzyness, shortness of breath, or chest pain. He was discharged but when working with PT was unsteady, recommended for SNF, discharge cancelled and looking at SNF options. Can go to SNF tomorrow at 2:30pm. Exam Vital Signs (past 8 hours): - 12/12/24 12:00 12/12/24 16:00 Temperature 96.7 F L 97.6 F Pulse Rate 54 L 53 L Respiratory Rate 14 15 Blood Pressure 178/86 H 171/86 H Pulse Oximetry 97 96 Oxygen Flow Rate 0 0 Oxygen Delivery Method Room Air Oxygen Flow Rate 0 Narrative Exam Narrative: NAD, alert and oriented, fluent speech, calm. Lungs clear, normal rate and effort. Heart regular, no murmur gallop or rub. Abdomen is soft, non distended and non tender. Extremities are free of edema. Objective Labs 12/09/24 14:45 12/09/24 14:45 PFSH Social History household members: friend(s) Smoking Status: Former smoker alcohol intake: current Assessment & Plan Assessment & Plan narrative: 1. bradycardia with first-degree heart block, present on admission and active, improved. 2. Transient dizziness with possible presyncope, present on admission and active. 3. Remote CVA, present on admission stable. 4. Atrial fibrillation, not present on admission are active. 5. Hyperlipidemia, present on admission and stable. 6. History of vertigo, present on admission and not clearly active. Plan: - continue observation status. PT recommending SNF, OT consulted as well. Current plan for discharge tomorrow to [facility] tomorrow at 2:30pm - holding metoprolol and have resumed home amlodipine. No significant bradycardic events since admission. No heart blocks on telemetry either. Will stop tele today. - orthostatics negative today, can stop checking qshift. - stopped IV fluids on 12/10. Dispo: Discharge to SNF tomorrow at 2:30, [facility]. Time-Based Coding :: [TOTAL MINUTES] spent with patient and on the chart (including review of chart, obtaining history, exam, reviewing outside data, placing orders, documenting exam and treatment plan, and counseling patient) on [DATE].
[2024-12-13 08:00] VITALS: BP 161/94; PULSE 64; RESP 16; TEMP 36.7; O2SAT 95
[2024-12-13] MEDS: ATORVASTATIN 20 MG TABLET 80 MG PO (08:32)
[2024-12-13] MEDS: levETIRAcetam 250 MG TABLET 500 MG PO (08:32)
[2024-12-13] MEDS: SERTRALINE 50 MG TABLET 25 MG PO (08:32)
[2024-12-13] MEDS: APIXABAN 5 MG TABLET PO (08:32)
[2024-12-13] MEDS: AMLODIPINE 5 MG TABLET 2.5 MG PO (08:32)
[2024-12-13] MEDS: SODIUM CHLORIDE 0.9% FLUSH 10 ML IV (08:33)
--- NOTE | 2024-12-13 11:00 | P.DS_ITS ---
History of Present Illness History of Present Illness Date Patient Seen: 12/13/24 Time Patient Seen: 08:48 Chief complaint: fatigue/dizzy Narrative: The patient was a 79-year-old male with a history of CVA, atrial fibrillation, hyperlipidemia, and vertigo. He apparently went to a doctor's office appointment today and then radius was returning home when he became dizzy and lightheaded. The patient presented to the ED where there was a concern for bradycardia. He had a sinus rhythm with a rate of 42 and a first-degree AV block. The patient denies chest pain, or complete syncope. He was no history of syncopal episodes. He was a long history of vertigo but feels that this was different. He does note that he does get woozy from time to time. He was seen by Cardiology at [facility], Dr. Carvajal. He believes that his only heart problem is atrial fibrillation. This appears to be PAF. Presumably, he takes metoprolol for rate control. He was hard of hearing in his hearing aids. His girlfriend is leaving these with him at the hospital. Discharge Providers Provider Date of admission: 12/09/24 17:33 Discharge Date: 12/13/24 Primary care physician: Otoniel Ahn MD Consults: 12/10/24 10:08 Consult to Physical Therapy Evaluate & Treat Comment: Physician Instructions: Evaluate and Treat 12/10/24 15:14 Consult to Occupational Therapy Evaluate & Treat Comment: Physician Instructions: Evaluate and treat Discharge provider: Joshua Chapman MD Summary Hospital Course Discharge Diagnosis: 1. Bradycardia with first-degree heart block, present on admission and active, improved off metoprolol. 2. Transient dizziness with possible presyncope, present on admission and active. 3. Remote CVA, present on admission stable. 4. Atrial fibrillation, not present on admission are active. 5. Hyperlipidemia, present on admission and stable. 6. History of vertigo. Hospital Course: The patient was admitted to observation status and monitored on telemetry, with metoprolol and lisinopril stopped. He had no significant bradycardic events since admission, and no heart block or orthostasis. Blood pressures brenda off amlodipine and lisinopril. Amlodipine was added back during hospitalization with blood pressure persistently elevated at discharge, and lisinopril resumed at 20 mg daily (40 mg prior to admission). Given overall weakness jail facility was recommended by Physical therapy. Case management worked with the patient to arrange jail facility admission. No other issues arose. Status at Discharge Cognitive/behavioral status at discharge: oriented Functional status at discharge: uses cane/walker Overall status at discharge: patient is back to baseline Time Spent with Patient Time spent: Greater than 30 minutes Exam Vital Signs (past 8 hours): - 12/13/24 08:00 Temperature 98.1 F Pulse Rate 64 Respiratory Rate 16 Blood Pressure 161/94 H Pulse Oximetry 95 Oxygen Flow Rate 0 Oxygen Delivery Method Room Air Oxygen Flow Rate 0 Narrative Exam Narrative: NAD, alert and oriented, fluent speech, calm. Lungs clear, normal rate and effort. Heart regular, no murmur gallop or rub. Abdomen is soft, non distended and non tender. Extremities are free of edema. Objective Imaging Chest xray 12/09/2024: Radiologist's impression: Cardiomegaly and mild congestion. No definite focal infiltrate. No significant pleural effusion or pneumothorax. Head CT 12/09/2024:: Radiologist's impression: No acute intracranial pathology. No significant changes from previous study. Labs 12/09/24 14:45 12/09/24 14:45 [facility] Social History household members: friend(s) Smoking Status: Former smoker alcohol intake: current Discharge Plan Discharge Plan Patient Disposition: SNF Transportation: Facility vehicle Provider Discharge Comment: You were admitted to the hospital with dizziness and a low HR, improved with holding one of your home medications. Home medications were adjusted. Please follow up with primary care provider and mushroom growing supervisor for ongoing medication adjustments moving forward after discharge home. I certify the postop hospital jail care is medically necessary on a continuing basis for any conditions for which he/ she received care during this hospitalization.: Yes The receiving facility has agreed to accept transfer and provide medical treatment.: Yes Discharge orders & Medications Prescriptions: New lisinopril 20 mg tablet 20 mg PO DAILY Qty: 30 0RF Continued atorvastatin 80 mg tablet 80 mg PO DAILY amlodipine 2.5 mg tablet 2.5 mg PO DAILY potassium chloride 10 mEq tablet extended release 10 meq PO DAILY terbinafine HCl 250 mg tablet 250 mg PO DAILY tamsulosin 0.4 mg capsule 0.4 mg PO DAILY levetiracetam 250 mg tablet 500 mg PO BID meclizine 25 mg tablet 25 mg PO Q6H PRN (Reason: dizziness) sertraline 25 mg tablet 25 mg PO DAILY montelukast 10 mg tablet 10 mg PO DAILY Eliquis 5 mg tablet 5 mg PO BID Discontinued hydralazine 25 mg tablet 25 mg PO 3XD metoprolol succinate 25 mg tablet extended release 24 hr 12.5 mg PO DAILY lisinopril 40 mg tablet 40 mg PO DAILY Follow up/Referrals: Otoniel Ahn MD [Primary Care Provider] - Diet/Activity/Treatments Diet: Diet as Tolerated and Regular Activity: As tolerated, no restrictions Visit Report/Discharge Packet Stand Alone Forms: Patient Portal/API, Stroke Signs & Symptoms Discharge Data Primary Care Provider: Otoniel Ahn Attending Provider: Yared Harris Admit Date/Time: 12/09/24 17:33 Quality MIPS - Admit I confirm the patient?s Advance Care Plan is present, Code status is documented, Surrogate decision maker is in patient?s record [If Yes, STOP here]: Yes [facility] - Meds 'Current medications' to include all prescriptions, [id number] products, herbals, cannabis/cannabidiol products, and vitamin/mineral/dietary (nutritional) supplements. I have utilized all available resources to obtain, update, or review the patient?s current medications. [If Yes, STOP here]: Yes [facility] - DC The patient has a history of heart transplant or Left Ventricular Assist Device (LVAD). If yes, STOP here.: No The patient has current or prior documentation of left ventricular ejection fraction (LVEF) less than or equal to 40%, or moderate or severely depressed left ventricular systolic function.: No A. The patient was prescribed or already taking an Angiotensin-Converting Enzyme (DEBI) Inhibitor, or Angiotensin Receptor Reynaldo (ARB).: Yes B. The patient was prescribed or already taking a beta-reynaldo. [If Yes to Both A & B, STOP here]: No Patient not prescribed/taking DEBI or ARB, no reason given.: No Patient not prescribed/taking beta-reynaldo, no reason given.: No [facility] Charge Codes Discharge inpatient/observation: 70201
--- NOTE | 2024-12-13 11:20 | CM.DPC ---
DCP Discharge SNF Per MD, pt medically stable to d/c to SNF today and discharge orders placed and packet completed. [facility] secure emailed [facility] pt's signed PASRR, signed med list, no scripts, MD orders and d/c summary to review and called admissions phone and left with update on d/c today as planned. SW called [facility] and confirmed they have pt scheduled for pickup today around 1430 to [facility] with facility paying for transport. RN, CUTTER HEAD SHARPENER, and breed to wean production technician updated. Plan: patient to d/c to [facility] today around 1430 via [facility] before return home with Sig Other. Juju Jackson MSW
[2024-12-13] MEDS: ONDANSETRON 4 MG/2 ML INJ IV (13:16)
== END 2024-12-13 15:43 ==
LOC: ED 14:58 → AC 17:34
PROVIDERS: Admitting Provider Hospitalist; Emergency Provider Family Medicine; Family Provider Nurse Practitioner; PCP Internal Medicine; Referring Provider Family Medicine; Visit Provider Hospitalist
DX: I44.0 Atrioventricular block, first degree (principal); I48.91 Unspecified atrial fibrillation; E78.5 Hyperlipidemia, unspecified; Z86.73 Personal history of transient ischemic attack (TIA), and cerebral infarction without residual deficits; Z87.891 Personal history of nicotine dependence
CPT/HCPCS: 36415; 70450; 71045; 80053; 82550; 83690; 83735; 83880; 84443; 84484; 85025; 85610; 85730; 93005; 96361; 96374; 97110; 97116; 97162; 97166; 97530; 97535; 99284; G0378; J2405

== ENCOUNTER → 2025-04-20 13:59 | Outpatient (CLI) | payer OTHER, MEDICAID, SELFPAY ==
[2024-12-09 18:11] VITALS: BMI 25.0
--- NOTE | 2025-04-20 14:01 | DI.ECHO.S_ITS ---
[facility] +---------+ Hospital : : [address] : : [place] : : [id number] : : Phone: [phone] Echocardiogram Report + + :Name: LEIGH GRISSOM Study Date: 04/20/2025 Height: 72 in : :Hospital ReadingLocation: Weight: 185 lb : : Gender: Male BSA: 2.1 m2 : :: 1945 Age: 79 yrs BP: 145/87 mmHg: :Reason For Study: BRADYCARDIA : :Ordering Physician: NAHUM, : :DIANA Performed By: rFedis Olivares : :Referring: DIANA SIDHU : + + Interpretation Summary The left ventricle is normal in size. There is mild-moderate concentric left ventricular hypertrophy. Left ventricular ejection fraction is estimated to be 65 +/- 5%. Previous LVEF 60 to 65%. The left ventricular ejection fraction is normal. The right ventricle is normal in size and function. No significant valvular pathology seen. The IVC is of normal diameter and collapses greater than 50% with a sniff. This suggests a low right atrial pressure of 3 mm Hg. Procedure: A two-dimensional transthoracic echocardiogram with color flow and Doppler was performed. The study quality was technically good. Comparison is made with the echocardiogram of 10/30/2017. The patient was in a bradycardic rhythm during the exam. The patient was in sinus bradycardia with heart rates between 48-52 bpm during the exam. Left Ventricle: The left ventricle is normal in size. Left ventricular wall thickness is mild-moderately increased. There is mild-moderate concentric left ventricular hypertrophy. There is no thrombus. Left ventricular ejection fraction is estimated to be 65 +/- 5%. The left ventricular ejection fraction is normal. There are no focal wall motion abnormalities. Grade II diastolic dysfunction with elevated left atrial pressure. Right Ventricle: The right ventricle is normal in size and function. Atria: The left atrium is moderately dilated. The left atrium has mildly increased in size since the prior echo exam. Right atrial size is normal. There is no Doppler evidence for an interatrial shunt. 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 Mitral Valve: There is moderate to severe mitral annular calcification. The mitral valve leaflets are moderately calcified. No significant mitral valve stenosis. There is trace mitral regurgitation. Aortic Valve: The aortic valve is trileaflet. The aortic valve opens well. The aortic valve is moderately calcified. There is no aortic valve stenosis. No aortic regurgitation is present. Tricuspid Valve: The tricuspid valve leaflets are thin and pliable. There is trace tricuspid regurgitation. Pulmonary artery pressures cannot be estimated because of the lack of a measurable TR jet velocity. Pulmonic Valve: The pulmonic valve is not well seen, but is grossly normal. There is trace pulmonic regurgitation. Great Vessels: The aortic root is normal size. The dimensions of the ascending aorta are normal. The pulmonary artery is normal size. The IVC is of normal diameter and collapses greater than 50% with a sniff. This suggests a low right atrial pressure of 3 mm Hg. Pericardium/ Pleura There is no pericardial effusion. There is an anterior echo-free space consistent with a fat pad. There is no pleural effusion. MMode/2D Measurements & Calculations LVIDd: 4.3 cm LVOT diam: 2.1 cm LVIDs: 2.9 cm Ao root diam: 4.2 cm FS: 31.5 % asc Aorta Diam: 3.6 cm EPSS: 0.75 cm IVSd: 1.4 cm LVPWd: 1.2 cm LV galvez. diameter/BSA (cm/m^2): 2.1 LV sys. diameter/BSA (cm/m^2): 1.4 LA A2 area: 25.4 cm2 RA long axis: 4.9 cm LA A4 area: 25.7 cm2 RA area: 14.1 cm2 LA length (vol): 6.1 cm RA vol: 34.2 ml LA vol: 91.0 ml RA : 16.6 ml/m2 LA vol index: 44.1 ml/m2 IVC diam: 1.2 cm RVD1 (basal): 3.5 cm RVD2 (mid): 2.5 cm TAPSE: 3.0 cm Doppler Measurements & Calculations Ao V2 max: 130.4 cm/sec LVOT Max Quirino: 117.6 cm/sec Ao V2 mean: 82.7 cm/sec LV V1 max P.5 mmHg Ao max P.8 mmHg LV V1 VTI: 26.2 cm Ao mean P.1 mmHg FAZAL(I,D): 3.4 cm2 Ao V2 VTI: 27.7 cm FAZAL(V,D): 3.2 cm2 sev ratio: 0.95 FAZAL indexed to BSA (cm^2/m^2): 1.6 MV E max quirino: 87.2 cm/sec PA V2 max: 97.8 cm/sec MV A max quirino: 82.3 cm/sec PA V2 mean: 73.1 cm/sec MV E/A: 1.1 PA mean P.3 mmHg Med Peak E' Quirino: 3.7 cm/sec PA pr(Accel): 44.7 mmHg E/E' med: 23.7 Lat Peak E' Quirino: 4.6 cm/sec E/E' lat: 19.0 E/e' average: 21.3 MV dec time: 0.29 sec SV(LVOT): 93.9 ml Reading Physician:05:04 PM
== END ==
LOC: ECHO 14:00
PROVIDERS: Family Provider Nurse Practitioner; PCP Internal Medicine; Referring Provider Internal Medicine; Visit Provider Internal Medicine Cardiovascular Disease
DX: I34.81 Nonrheumatic mitral (valve) annulus calcification (principal); I35.8 Other nonrheumatic aortic valve disorders; R00.1 Bradycardia, unspecified; I51.7 Cardiomegaly
CPT/HCPCS: 93306